=== PATIENT | male | born 1950 | race Caucasian/White ===

== ENCOUNTER 2017-09-24 17:47 | Inpatient (IN) | payer MEDICARE, OTHER ==
[~2017-09-24] VITALS: Ht 182.9 cm; Wt 96.4 kg
--- NOTE | 2017-09-24 17:52 | ED.ADGEN ---
Past History Past Medical History: Anxiety, CVA, Dementia, Depression, Other Adult General Chief Complaint Chief Complaint ".. I guess I here because I am a beater..." HPI HPI Patient is a 66 year old male who presents with above hx and complaints of confusing, non-compliance with meds, hx of past psychosis, felt to be in actively psychotic currently, hx of chronic pain, Schizophrenia and HTN hx. Pt. follows with Michelle Ho. Pt. lives in [place] and was transfer from [facility] to admission to [facility] for further eval and tx. Pt. said he has chronic pain.. and has not been getting enough pain meds. Review of Systems Review of Systems Constitutional: Denies fever or chills [] Eyes: Denies change in visual acuity, redness, or eye pain [] HENT: Denies nasal congestion or sore throat [] Respiratory: Denies cough or shortness of breath [] Cardiovascular: No additional information not addressed in HPI [] GI: Denies abdominal pain, nausea, vomiting, bloody stools or diarrhea [] : Denies dysuria or hematuria [] Musculoskeletal: Complaints of chronic, neck, back pain and joint pain [] Integument: Denies rash or skin lesions [] Neurologic: Denies headache, focal weakness or sensory changes [] Endocrine: Denies polyuria or polydipsia [] All other systems were reviewed and found to be within normal limits, except as documented in this note. Family History Family History Not currently available. Current Medications Current Medications Current Medications Medications (Trade) Dose Ordered Sig/Julio Start Time Stop Time Status Last Admin Dose Admin Clonidine HCl (Catapres Tts-2) 1 patch 1X ONCE 09/24/17 20:30 09/24/17 20:31 DC See Nursing for home meds Allergies Allergies Allergies Coded Allergies Type Severity Reaction Last Updated Verified Sulfa (Sulfonamide Antibiotics) Allergy Unknown 09/24/17 Yes Physical Exam Physical Exam Constitutional: , in acute distress, non-toxic appearance. [] HENT: Normocephalic, atraumatic, bilateral external ears normal, oropharynx moist, no oral exudates, nose normal. []Poor dentition. Eyes: PERRLA, EOMI, conjunctiva normal, no discharge. Glasses. Neck: Normal range of motion, no tenderness, supple, no stridor. [] Cardiovascular:Heart rate regular rhythm, no murmur [] Lungs & Thorax: Bilateral breath sounds equal with few scattered wheezes on auscultation [] Abdomen: Bowel sounds normal, soft, no tenderness, no masses, no pulsatile masses. [] Skin: Warm, dry, no erythema, no rash. [] Poor turgor. Back: complaints of generalize lumbar and cervical paraspinal muscle tenderness , no CVA tenderness. [] No step off's or mid line. Extremities: No tenderness, no cyanosis, no clubbing, ROM intact, no edema. [] Neurologic: Alert and oriented X 3, No gross motor or sensory function deficits , wide gait, no gross focal deficits noted. []Pt. is ambulatory. Frequently wanders out of room. DTR +2 patella and brachial. Psychologic: Affect anxious, judgement appears limited, mood depressed. Current Patient Data Vital Signs Vital Signs Date Time Temp Pulse Resp B/P (MAP) Pulse Ox O2 Delivery O2 Flow Rate FiO2 09/24/17 18:00 98.7 75 16 95 Room Air Lab Results Laboratory Tests Test 09/24/17 18:10 09/24/17 18:21 09/24/17 19:39 Troponin I Quantitative < 0.017 ng/mL (0-0.055) White Blood Count 6.9 x10^3/uL (4.0-11.0) Red Blood Count 4.74 x10^6/uL (4.30-5.70) Hemoglobin 15.8 g/dL (13.0-17.5) Hematocrit 45.5 % (39.0-53.0) Mean Corpuscular Volume 96 fL (79-100) Mean Corpuscular Hemoglobin 33 pg (25-35) Mean Corpuscular Hemoglobin Concent 35 g/dL (31-37) Red Cell Distribution Width 14.2 % (11.5-14.5) Platelet Count 213 x10^3/uL (140-400) Neutrophils (%) (Auto) 62 % (31-73) Lymphocytes (%) (Auto) 23 % (24-48) L Monocytes (%) (Auto) 10 % (0-9) H Eosinophils (%) (Auto) 5 % (0-3) H Basophils (%) (Auto) 1 % (0-3) Neutrophils # (Auto) 4.2 x10^3uL (1.8-7.7) Lymphocytes # (Auto) 1.6 x10^3/uL (1.0-4.8) Monocytes # (Auto) 0.7 x10^3/uL (0.0-1.1) Eosinophils # (Auto) 0.3 x10^3/uL (0.0-0.7) Basophils # (Auto) 0.1 x10^3/uL (0.0-0.2) Erythrocyte Sedimentation Rate 9 (0-15) Sodium Level 141 mmol/L (136-145) Potassium Level 4.2 mmol/L (3.5-5.1) Chloride Level 105 mmol/L (98-107) Carbon Dioxide Level 28 mmol/L (21-32) Anion Gap 8 (6-14) Blood Urea Nitrogen 20 mg/dL (8-26) Creatinine 0.9 mg/dL (0.7-1.3) Estimated GFR (Cockcroft-Gault) 83.9 Glucose Level 109 mg/dL (70-99) H Calcium Level 9.5 mg/dL (8.5-10.1) Magnesium Level 2.4 mg/dL (1.8-2.4) Creatine Kinase 104 U/L (39-308) Creatine Kinase MB (Mass) 0.7 ng/mL (0.0-3.6) Creatine Kinase MB Relative Index 0.7 % (0-4) PV-Vqn-[id number]-Type Natriuretic Peptide 101 pg/mL (0-124) Urine Collection Type Unknown Urine Color Misty Urine Clarity Hazy Urine pH 6.5 Urine Specific Jackson >=1.030 Urine Protein 30 mg/dl (NEG-TRACE) Urine Glucose (UA) Neg mg/dL (NEG) Urine Ketones (Stick) 15 mg/dL (NEG) Urine Blood Neg (NEG) Urine Nitrite Neg (NEG) Urine Bilirubin Neg (NEG) Urine Urobilinogen Dipstick 1 mg/dL (0.2 mg/dL) Urine Leukocyte Esterase Neg (NEG) Urine RBC 6-10 /HPF (0-2) Urine WBC 1-4 /HPF (0-4) Urine Squamous Epithelial Cells Few /LPF Urine Bacteria 0 /HPF (0-FEW) Urine Mucus Marked /LPF Urine Opiates Screen Neg (NEG) Urine Methadone Screen Neg (NEG) Urine Barbiturates Neg (NEG) Urine Phencyclidine Screen Neg (NEG) Urine Amphetamine/Methamphetamine Neg (NEG) Urine Benzodiazepines Screen Neg (NEG) Urine Cocaine Screen Neg (NEG) Urine Cannabinoids Screen Pos (NEG) Urine Ethyl Alcohol Neg (NEG) EKG EKG [] Radiology/Procedures Radiology/Procedures Dictation of chest x-ray shows some chronic changes. Essentially normal cardiac silhouette. No free air in the diaphragm. Does have arthritic changes. Cervical- DJD changes. No fx. My interpretation CT of head shows no shift, mass, edema, bleed, or fracture. Does have an area of encephalomalacia... and atrophy and white matter changes. [ ]See formal reading when available. Course & Med Decision Making Course & Med Decision Making Pertinent Labs and Imaging studies reviewed. (See chart for details). Still awaiting urine 2014 results. Admit to [facility]- Dr. Feldman. Consult to Dr. Edwards for medical issues and pending urine. [] Final Impression Final Impression 1. Mental Status Change[] 2. Confusion 3. Hx. Noncompliance 4. Hx Chronic Pain 5. Hx Psychosis 6. Hx. of Non-compliance 7. Hx. HTN 8. Marijuana and Tobacco Use. Problems: Dragon Disclaimer Dragon Disclaimer This electronic medical record was generated, in whole or in part, using a voice recognition dictation system. KAITLYNN PAYNE MD Sep 24, 2017 17:52
--- NOTE | 2017-09-24 18:29 | RAD ---
EXAM: Head and cervical spine CT without contrast. HISTORY: Mental status changes. TECHNIQUE: Computed tomographic images of the head and cervical spine were obtained without contrast. *One or more of the following individualized dose reduction techniques were utilized for this examination: 1. Automated exposure control. 2. Adjustment of the mA and/or kV according to patient size. 3. Use of iterative reconstruction technique. COMPARISON: None. FINDINGS: Head: There is no hemorrhage. There is no mass effect or midline shift. There is no hydrocephalus. There are scattered areas of hypodensity within the cerebral white matter, likely due to chronic small vessel disease. There is mild age-appropriate cerebral volume loss. There is a focus of hypodensity within the anterior right frontal lobe possibly due to chronic infarction or the sequela of remote trauma. There is mild paranasal sinus mucosal thickening. The mastoid air cells are clear. No calvarial lesion is seen. Cervical spine: There is straightening of cervical lordosis. There is minimal anterolisthesis of C6 on C7. There is degenerative endplate remodeling with disc space narrowing and osteophytosis primarily at C3-C4 and C5-C6. There are few endplate Schmorl's nodes. There is no suspicious osseous lesion. There is no fracture. 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 At C2-C3, there is no stenosis. At C3-C4, there is a disc bulge and endplate remodeling. There is no stenosis. At C4-C5, there is no stenosis. At C5-C6, there is a right foraminal to extraforaminal disc osteophyte complex and left posterior paracentral disc osteophyte complex superimposed on a disc bulge and endplate remodeling. There is a right uncovertebral arthropathy. There is mild right foraminal stenosis. At C6-C7, there is no stenosis. IMPRESSION: 1. No acute intracranial finding or evidence of acute cervical spine trauma. 2. Scattered areas of hypodensity within the cerebral white matter, likely due to chronic small vessel disease. 3. Suspected small focus of encephalomalacia within the right frontal lobe. 4. Multilevel degenerative change within the cervical spine, described above. 5. Note is made that MRI is more sensitive for acute infarction. Electronically signed by: Lotus Ambrocio MD (09/24/2017 6:26 PM) [facility]
[2017-09-24] MEDS ORDERED: cloNIDine TTS-2 1 PATCH PATCH TD ONE ×2 (18:30→20:30)
--- NOTE | 2017-09-24 18:32 | EKG ---
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
[2017-09-24 18:47] LABS: BASO # 0.1 x10^3/uL (0.0-0.2); BASO % 1 % (0-3); EOS # 0.3 x10^3/uL (0.0-0.7); EOS % 5 % (0-3); HEMATOCRIT 45.5 % (39.0-53.0); HEMOGLOBIN 15.8 g/dL (13.0-17.5); LYMPH # 1.6 x10^3/uL (1.0-4.8); LYMPH % 23 % (24-48); MEAN CORPUSCULAR HEMOGLOBIN 33 pg (25-35); MEAN CORPUSCULAR HGB CONC 35 g/dL (31-37); MEAN CORPUSCULAR VOLUME 96 fL (79-100); MONO # 0.7 x10^3/uL (0.0-1.1); MONO % 10 % (0-9); NEUT # 4.2 x10^3uL (1.8-7.7); NEUT % 62 % (31-73); PLATELET COUNT 213 x10^3/uL (140-400); RED BLOOD COUNT 4.74 x10^6/uL (4.30-5.70); RED CELL DISTRIBUTION WIDTH 14.2 % (11.5-14.5); WHITE BLOOD COUNT 6.9 x10^3/uL (4.0-11.0)
[2017-09-24 19:09] LABS: CALCIUM 9.5 mg/dL (8.5-10.1); CREATININE 0.9 mg/dL (0.7-1.3); GFR 83.9; MAGNESIUM 2.4 mg/dL (1.8-2.4); POTASSIUM 4.2 mmol/L (3.5-5.1)
[2017-09-24 19:55] LABS: SEDIMENTATION RATE 9 (0-15)
[2017-09-24 20:28] LABS: AMPHETAMINE/METHAMPHETAMINE NEG (NEG); BARBITURATES NEG (NEG); BENZODIAZEPINES NEG (NEG); CANNABINOIDS POS (NEG); COCAINE NEG (NEG); METHADONE NEG (NEG); OPIATES NEG (NEG); PHENCYCLIDINE NEG (NEG)
[2017-09-24 20:30] LABS: BILIRUBIN,URINE NEG (NEG); CLARITY,URINE HAZY; COLOR,URINE AMBER; GLUCOSE,URINE NEG (NEG); UROBILINOGEN,URINE 1 mg/dL (0.2 mg/dL)
[2017-09-24 20:31] LABS: BACTERIA,URINE 0 /HPF (0-FEW); NITRITE,URINE NEG (NEG); SQUAMOUS EPITHELIAL CELL,UR FEW /LPF
[2017-09-24] MEDS ORDERED: RISP1TAB3 PO (21:24)
[2017-09-24] MEDS ORDERED: PROP60TA PO (21:24)
[2017-09-24] MEDS ORDERED: TRAZ-90 PO (21:24)
[2017-09-24] MEDS ORDERED: GABA-587 PO (21:24)
[2017-09-24] MEDS ORDERED: MAGNESIUM HYDROXIDE 2,400 MG/30 ML ORAL.SUSP. PO PRN (21:30)
[2017-09-24] MEDS ORDERED: METHYL SALICYLATE/MENTHOL TOPICAL OINTMENT 29GM TUBE. TP PRN (21:30)
[2017-09-24] MEDS ORDERED: MAG HYDROX/AL HYDROX/SIMETH 30 ML ORAL.SUSP PO PRN (21:30)
[2017-09-24] MEDS: traZODone 100 MG TABLET. PO SCH (22:40)
[2017-09-24] MEDS: GABAPENTIN 400 MG CAPSULE. PO SCH (22:40)
[2017-09-24] MEDS: risperiDONE 1 MG TABLET. PO SCH (22:41)
[2017-09-24] MEDS: ACETAMINOPHEN 325 MG TABLET PO PRN (23:40)
[2017-09-24] MEDS: PROPRANOLOL 20 MG TABLET. PO SCH (23:41)
[2017-09-25 00:57] VITALS: BP 142/77
[2017-09-25 06:46] VITALS: BP 140/74
[2017-09-25] MEDS ORDERED: GABAPENTIN 400 MG CAPSULE. PO SCH (09:00)
[2017-09-25] MEDS ORDERED: PROPRANOLOL 20 MG TABLET. PO SCH (09:00)
[2017-09-25] MEDS ORDERED: risperiDONE 1 MG TABLET. PO SCH (09:00)
[2017-09-25] MEDS ORDERED: PROPRANOLOL HCL 60 MG PO SCH (09:00)
[2017-09-25] MEDS: GABAPENTIN 400 MG CAPSULE. PO SCH ×3 (09:17→21:02)
[2017-09-25] MEDS: risperiDONE 1 MG TABLET. PO SCH ×2 (09:17→21:02)
[2017-09-25] MEDS: ACETAMINOPHEN 325 MG TABLET PO PRN (09:19)
[2017-09-25 09:21] VITALS: BP 124/83
[2017-09-25] MEDS: PROPRANOLOL 20 MG TABLET. PO SCH ×3 (09:24→21:04)
--- NOTE | 2017-09-25 10:26 | RAD ---
CHEST PA LATERAL Clinical Indication: MENTAL STATUS CHANGE Comparison: None. Findings: Normal lung volume. No focal consolidations. Normal pulmonary vasculature. No pleural effusion or pneumothorax. The cardiomediastinal silhouette is normal. Slightly tortuous and atherosclerotic thoracic aorta. No acute osseous abnormality. IMPRESSION: No acute cardiopulmonary process.
--- NOTE | 2017-09-25 16:11 | PDOC1 ---
History of Present Illness Reason for Visit: Confused History of Present Illness Pt sent to [facility] for evaluation in the [facility] unit. Per report, pt has been confused lately, having excessive psychoses. He walked to a pharmacy and then [facility]. Called 911 for leg pain. He has been having sx's for about 10 days. He normally is seen as an outpatient 3 times per week. Pt is a relatively poor historian, but is alert. Per nursing staff, pt has been saying he hadn't been able to walk for 2 days, but today has been "walking much better. " Chief Complaint: PSYCH EVALUATION Allergies: Coded Allergies: Sulfa (Sulfonamide Antibiotics) (Verified Allergy, Unknown, 09/24/17) Past Medical History Cardiac: HTN Psych: Schizophrenia Past Surgical History: No pertinent history Family History: No pertinent hx Past Social History Smoke: Quit Alcohol: none Drugs: None Lives: Alone Review of Systems Review Of Systems Fourteen system , review of systems has been reviewed. See HPI for pertinent positives and negative responses, other [place] all other systems are negative, non pertinent or non contributory Allergies: Coded Allergies: Sulfa (Sulfonamide Antibiotics) (Verified Allergy, Unknown, 09/24/17) Medications Current Medications Clonidine HCl (Catapres Tts-2) 1 patch 1X ONCE TD Last administered on at 19:10; Start 09/24/17 at 18:30; Stop 09/24/17 at 18:31; Status DC Clonidine HCl (Catapres Tts-2) 1 patch 1X ONCE TD ; Start 09/24/17 at 20:30; Stop 09/24/17 at 20:31; Status DC Acetaminophen (Tylenol) 650 mg PRN Q6HRS PRN PO MILDPAIN / TEMP Last administered on 09/25/17at 09:19; Start 09/24/17 at 21:30 Multi-Ingredient Ointment (Analgesic Amistad) 1 tip PRN QID PRN TP MUSCLE PAIN; Start 09/24/17 at 21:30 Al Hydroxide/Mg Hydroxide (Mylanta Plus Xs) 15 ml PRN AFTMEALHC PRN PO DYSPEPSIA; Start 09/24/17 at 21:30 Magnesium Hydroxide (Milk Of Magnesia) 2,400 mg PRN QHS PRN PO CONSTIPATION 1ST CHOICE; Start 09/24/17 at 21:30 Gabapentin (Neurontin) 400 mg TID PO ; Start 09/25/17 at 09:00; Stop 09/25/17 at 09:00; Status DC Risperidone (RisperDAL) 1 mg BID PO ; Start 09/25/17 at 09:00; Stop 09/25/17 at 09:00; Status DC Trazodone HCl (Desyrel) 200 mg QHS PO ; Start 09/25/17 at 21:00; Stop 09/25/17 at 21:00; Status DC Non-Formulary Medication (Propranolol Hcl ) 60 mg TID PO ; Start 09/25/17 at 09: 00; Stop 09/25/17 at 09:00; Status DC Gabapentin (Neurontin) 400 mg TID PO Last administered on 09/25/17at 09:17; Start 09/24/17 at 23:00 Risperidone (RisperDAL) 1 mg BID PO Last administered on 09/25/17at 09:17; Start 09/24/17 at 23:00 Trazodone HCl (Desyrel) 200 mg QHS PO Last administered on 09/24/17at 22:40; Start 09/24/17 at 23:00 Propranolol HCl (Inderal) 60 mg TID PO ; Start 09/25/17 at 09:00; Stop 09/25/17 at 09:00; Status DC Propranolol HCl (Inderal) 60 mg TID PO Last administered on 09/25/17at 09:24; Start 09/24/17 at 23:45 Divalproex Sodium (Depakote Er) 500 mg QHS PO ; Start 09/25/17 at 21:00 Active Scripts Active Reported Trazodone Hcl 100 Mg Tablet 200 Mg PO QHS Risperidone 1 Mg Tablet 1 Mg PO BID Propranolol Hcl 60 Mg Tablet 60 Mg PO TID Neurontin (Gabapentin) 400 Mg Capsule 400 Mg PO TID Exam Vital Signs Vital Signs Date Time Temp Pulse Resp B/P (MAP) Pulse Ox O2 Delivery O2 Flow Rate FiO2 09/25/17 09:24 75 124/83 09/25/17 06:46 97.6 20 94 09/24/17 20:36 Room Air General Appearance: Alert, Oriented X3, Cooperative, No acute distress HEENT: Atraumatic, PERRLA, EOMI, Mucous membr. moist/pink, Other (Neck supple, no JVD, no LAD, No carotid bruits) Respiratory: Clear to auscultation, Normal air movement Heart: Regular rate, Normal S1, Normal S2, No murmurs Abdominal: Soft, No tenderness, No hepatospenomegaly, No masses Extremities: No edema, Normal pulses, No tenderness/swelling Skin: No rashes, No breakdown Neuro: Normal gait, Normal speech, Strength at 5/5 X4 ext, Normal tone, Sensation intact, Cranial nerves 3-12 NL, Reflexes 2+ Psych/Mental Status: Mental status NL, Mood NL Assessment/Plan Assessment/Plan 1. Schizophrenia w/ acute psychosis: Per Dr. Feldman. 2. Encephalomalacia: Unclear etiology. Not acute. Consider MRI if pt has any new or worsening sx's. 3. HTN: Monitor BP, ok now. Adjust meds as necessary. 4. DVT proph: No heparin, pt fully ambulatory. COURSE Allergies Coded Allergies Type Severity Reaction Last Updated Verified Sulfa (Sulfonamide Antibiotics) Allergy Unknown 09/24/17 Yes Laboratory Tests Test 09/24/17 18:10 09/24/17 18:21 09/24/17 19:00 09/24/17 19:39 Troponin I Quantitative < 0.017 ng/mL (0-0.055) White Blood Count 6.9 x10^3/uL (4.0-11.0) Red Blood Count 4.74 x10^6/uL (4.30-5.70) Hemoglobin 15.8 g/dL (13.0-17.5) Hematocrit 45.5 % (39.0-53.0) Mean Corpuscular Volume 96 fL (79-100) Mean Corpuscular Hemoglobin 33 pg (25-35) Mean Corpuscular Hemoglobin Concent 35 g/dL (31-37) Red Cell Distribution Width 14.2 % (11.5-14.5) Platelet Count 213 x10^3/uL (140-400) Neutrophils (%) (Auto) 62 % (31-73) Lymphocytes (%) (Auto) 23 % (24-48) Monocytes (%) (Auto) 10 % (0-9) Eosinophils (%) (Auto) 5 % (0-3) Basophils (%) (Auto) 1 % (0-3) Neutrophils # (Auto) 4.2 x10^3uL (1.8-7.7) Lymphocytes # (Auto) 1.6 x10^3/uL (1.0-4.8) Monocytes # (Auto) 0.7 x10^3/uL (0.0-1.1) Eosinophils # (Auto) 0.3 x10^3/uL (0.0-0.7) Basophils # (Auto) 0.1 x10^3/uL (0.0-0.2) Erythrocyte Sedimentation Rate 9 (0-15) Sodium Level 141 mmol/L (136-145) Potassium Level 4.2 mmol/L (3.5-5.1) Chloride Level 105 mmol/L (98-107) Carbon Dioxide Level 28 mmol/L (21-32) Anion Gap 8 (6-14) Blood Urea Nitrogen 20 mg/dL (8-26) Creatinine 0.9 mg/dL (0.7-1.3) Estimated GFR (Cockcroft-Gault) 83.9 Glucose Level 109 mg/dL (70-99) Calcium Level 9.5 mg/dL (8.5-10.1) Magnesium Level 2.4 mg/dL (1.8-2.4) Creatine Kinase 104 U/L (39-308) Creatine Kinase MB (Mass) 0.7 ng/mL (0.0-3.6) Creatine Kinase MB Relative Index 0.7 % (0-4) GX-Qio-T-Type Natriuretic Peptide 101 pg/mL (0-124) Thyroid Stimulating Hormone (TSH) 0.630 uIU/mL (0.358-3.740) Iron Level 121 ug/dL (65-175) Total Iron Binding Capacity 296 ug/dL (250-450) Iron Saturation 41 % (15-34) Triglycerides Level 209 mg/dL (0-150) Cholesterol Level 181 mg/dL (0-200) LDL Cholesterol, Calculated 104 mg/dL (0-100) VLDL Cholesterol, Calculated 41 mg/dL (0-40) Non-HDL Cholesterol Calculated 145 mg/dL (0-129) HDL Cholesterol 36 mg/dL (40-60) Cholesterol/HDL Ratio 5.0 Thyroxine (T4) 10.0 ug/dL (4.5-12.0) Total Triiodothyronine 134 ng/dL (71-180) Urine Collection Type Unknown Urine Color Misty Urine Clarity Hazy Urine pH 6.5 Urine Specific Media >=1.030 Urine Protein 30 mg/dl (NEG-TRACE) Urine Glucose (UA) Neg mg/dL (NEG) Urine Ketones (Stick) 15 mg/dL (NEG) Urine Blood Neg (NEG) Urine Nitrite Neg (NEG) Urine Bilirubin Neg (NEG) Urine Urobilinogen Dipstick 1 mg/dL (0.2 mg/dL) Urine Leukocyte Esterase Neg (NEG) Urine RBC 6-10 /HPF (0-2) Urine WBC 1-4 /HPF (0-4) Urine Squamous Epithelial Cells Few /LPF Urine Bacteria 0 /HPF (0-FEW) Urine Mucus Marked /LPF Urine Opiates Screen Neg (NEG) Urine Methadone Screen Neg (NEG) Urine Barbiturates Neg (NEG) Urine Phencyclidine Screen Neg (NEG) Urine Amphetamine/Methamphetamine Neg (NEG) Urine Benzodiazepines Screen Neg (NEG) Urine Cocaine Screen Neg (NEG) Urine Cannabinoids Screen Pos (NEG) Urine Ethyl Alcohol Neg (NEG) Test 09/25/17 09:55 Prothrombin Time 10.5 SEC (9.4-11.4) Prothromb Time International Ratio 1.0 (0.9-1.1) Activated Partial Thromboplast Time 23 SEC (23-33) Current Medications Medications (Trade) Dose Ordered Sig/Julio Route PRN Reason Start Time Stop Time Status Last Admin Dose Admin Clonidine HCl (Catapres Tts-2) 1 patch 1X ONCE TD 09/24/17 18:30 09/24/17 18:31 DC 09/24/17 19:10 Clonidine HCl (Catapres Tts-2) 1 patch 1X ONCE TD 09/24/17 20:30 09/24/17 20:31 DC Acetaminophen (Tylenol) 650 mg PRN Q6HRS PRN PO MILDPAIN / TEMP 09/24/17 21:30 09/25/17 09:19 Multi-Ingredient Ointment (Analgesic Amistad) 1 tip PRN QID PRN TP MUSCLE PAIN 09/24/17 21:30 Al Hydroxide/Mg Hydroxide (Mylanta Plus Xs) 15 ml PRN AFTMEALHC PRN PO DYSPEPSIA 09/24/17 21:30 Magnesium Hydroxide (Milk Of Magnesia) 2,400 mg PRN QHS PRN PO CONSTIPATION 1ST CHOICE 09/24/17 21:30 Gabapentin (Neurontin) 400 mg TID PO 09/25/17 09:00 09/25/17 09:00 DC Risperidone (RisperDAL) 1 mg BID PO 09/25/17 09:00 09/25/17 09:00 DC Trazodone HCl (Desyrel) 200 mg QHS PO 09/25/17 21:00 09/25/17 21:00 DC Non-Formulary Medication (Propranolol Hcl ) 60 mg TID PO 09/25/17 09:00 09/25/17 09:00 DC Gabapentin (Neurontin) 400 mg TID PO 09/24/17 23:00 09/25/17 09:17 Risperidone (RisperDAL) 1 mg BID PO 09/24/17 23:00 09/25/17 09:17 Trazodone HCl (Desyrel) 200 mg QHS PO 09/24/17 23:00 09/24/17 22:40 Propranolol HCl (Inderal) 60 mg TID PO 09/25/17 09:00 09/25/17 09:00 DC Propranolol HCl (Inderal) 60 mg TID PO 09/24/17 23:45 09/25/17 09:24 Divalproex Sodium (Depakote Er) 500 mg QHS PO 09/25/17 21:00 Vital Signs Date Time Temp Pulse Resp B/P (MAP) Pulse Ox O2 Delivery O2 Flow Rate FiO2 09/25/17 09:24 75 124/83 09/25/17 06:46 97.6 20 94 09/24/17 20:36 Room Air EXAM: Head and cervical spine CT without contrast. HISTORY: Mental status changes. TECHNIQUE: Computed tomographic images of the head and cervical spine were obtained without contrast. *One or more of the following individualized dose reduction techniques were utilized for this examination: 1. Automated exposure control. 2. Adjustment of the mA and/or kV according to patient size. 3. Use of iterative reconstruction technique. COMPARISON: None. FINDINGS: Head: There is no hemorrhage. There is no mass effect or midline shift. There is no hydrocephalus. There are scattered areas of hypodensity within the cerebral white matter, likely due to chronic small vessel disease. There is mild age-appropriate cerebral volume loss. There is a focus of hypodensity within the anterior right frontal lobe possibly due to chronic infarction or the sequela of remote trauma. There is mild paranasal sinus mucosal thickening. The mastoid air cells are clear. No calvarial lesion is seen. Cervical spine: There is straightening of cervical lordosis. There is minimal anterolisthesis of C6 on C7. There is degenerative endplate remodeling with disc space narrowing and osteophytosis primarily at C3-C4 and C5-C6. There are few endplate Schmorl's nodes. There is no suspicious osseous lesion. There is no fracture. 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 At C2-C3, there is no stenosis. At C3-C4, there is a disc bulge and endplate remodeling. There is no stenosis. At C4-C5, there is no stenosis. At C5-C6, there is a right foraminal to extraforaminal disc osteophyte complex and left posterior paracentral disc osteophyte complex superimposed on a disc bulge and endplate remodeling. There is a right uncovertebral arthropathy. There is mild right foraminal stenosis. At C6-C7, there is no stenosis. IMPRESSION: 1. No acute intracranial finding or evidence of acute cervical spine trauma. 2. Scattered areas of hypodensity within the cerebral white matter, likely due to chronic small vessel disease. 3. Suspected small focus of encephalomalacia within the right frontal lobe. 4. Multilevel degenerative change within the cervical spine, described above. 5. Note is made that MRI is more sensitive for acute infarction. CHEST PA LATERAL Clinical Indication: MENTAL STATUS CHANGE Comparison: None. Findings: Normal lung volume. No focal consolidations. Normal pulmonary vasculature. No pleural effusion or pneumothorax. The cardiomediastinal silhouette is normal. Slightly tortuous and atherosclerotic thoracic aorta. No acute osseous abnormality. IMPRESSION: No acute cardiopulmonary process. GAURANG COLEMAN MD Sep 25, 2017 16:10
[2017-09-25 17:47] VITALS: BP 136/86
[2017-09-25] MEDS ORDERED: traZODone 100 MG TABLET. PO SCH (21:00)
[2017-09-25] MEDS: traZODone 100 MG TABLET. PO SCH (21:02)
[2017-09-25] MEDS: DIVALPROEX ER 500 MG TAB.ER.24H PO SCH (21:05)
--- NOTE | 2017-09-25 22:42 | PDOC ---
Exam Note: Sander Note: Please also refer to the separate dictated note~for this date of service dictated separately.~Patient seen individually. Discussed the patient with Nursing staff reviewed the chart.~Reviewed interim history and current functioning. Reviewed vital signs,~Labs/ Radiology~and current medications noted below. Continue current treatment with the changes noted in the dictated addendum note Assessment: Vital Signs: Vital Signs Date Time Temp Pulse Resp B/P (MAP) Pulse Ox O2 Delivery O2 Flow Rate FiO2 09/25/17 21:04 73 136/86 09/25/17 17:47 97.8 20 94 09/24/17 20:36 Room Air I&O Intake and Output 09/25/17 07:00 Intake Total 520 ml Balance 520 ml Intake Oral 520 ml Labs: Laboratory Tests Test 09/25/17 09:55 Prothrombin Time 10.5 SEC (9.4-11.4) Prothrombin Time INR 1.0 (0.9-1.1) PTT 23 SEC (23-33) Current Medications: Meds: Current Medications Clonidine HCl (Catapres Tts-2) 1 patch 1X ONCE TD Last administered on at 19:10; Start 09/24/17 at 18:30; Stop 09/24/17 at 18:31; Status DC Clonidine HCl (Catapres Tts-2) 1 patch 1X ONCE TD ; Start 09/24/17 at 20:30; Stop 09/24/17 at 20:31; Status DC Acetaminophen (Tylenol) 650 mg PRN Q6HRS PRN PO MILDPAIN / TEMP Last administered on 09/25/17at 09:19; Start 09/24/17 at 21:30 Multi-Ingredient Ointment (Analgesic Emblem) 1 tip PRN QID PRN TP MUSCLE PAIN; Start 09/24/17 at 21:30 Al Hydroxide/Mg Hydroxide (Mylanta Plus Xs) 15 ml PRN AFTMEALHC PRN PO DYSPEPSIA; Start 09/24/17 at 21:30 Magnesium Hydroxide (Milk Of Magnesia) 2,400 mg PRN QHS PRN PO CONSTIPATION 1ST CHOICE; Start 09/24/17 at 21:30 Gabapentin (Neurontin) 400 mg TID PO ; Start 09/25/17 at 09:00; Stop 09/25/17 at 09:00; Status DC Risperidone (RisperDAL) 1 mg BID PO ; Start 09/25/17 at 09:00; Stop 09/25/17 at 09:00; Status DC Trazodone HCl (Desyrel) 200 mg QHS PO ; Start 09/25/17 at 21:00; Stop 09/25/17 at 21:00; Status DC Non-Formulary Medication (Propranolol Hcl ) 60 mg TID PO ; Start 09/25/17 at 09: 00; Stop 09/25/17 at 09:00; Status DC Gabapentin (Neurontin) 400 mg TID PO Last administered on 09/25/17at 21:02; Start 09/24/17 at 23:00 Risperidone (RisperDAL) 1 mg BID PO Last administered on 09/25/17at 21:02; Start 09/24/17 at 23:00 Trazodone HCl (Desyrel) 200 mg QHS PO Last administered on 09/25/17at 21:02; Start 09/24/17 at 23:00 Propranolol HCl (Inderal) 60 mg TID PO ; Start 09/25/17 at 09:00; Stop 09/25/17 at 09:00; Status DC Propranolol HCl (Inderal) 60 mg TID PO Last administered on 09/25/17at 21:04; Start 09/24/17 at 23:45 Divalproex Sodium (Depakote Er) 500 mg QHS PO Last administered on 09/25/17at 21 :05; Start 09/25/17 at 21:00 Active Scripts Active Reported Trazodone Hcl 100 Mg Tablet 200 Mg PO QHS Risperidone 1 Mg Tablet 1 Mg PO BID Propranolol Hcl 60 Mg Tablet 60 Mg PO TID Neurontin (Gabapentin) 400 Mg Capsule 400 Mg PO TID I have reviewed the current psychotropics carefully including drug interactions. Risk benefit ratio favors no change other than as noted in my dictated progress note. Diagnosis: Problems: (1) Schizoaffective disorder, chronic condition with acute exacerbation ZORAIDA MCKEON MD Sep 25, 2017 22:42
[2017-09-26 06:33] VITALS: BP 116/61
[2017-09-26] MEDS: GABAPENTIN 400 MG CAPSULE. PO SCH ×3 (08:47→20:06)
[2017-09-26] MEDS: risperiDONE 1 MG TABLET. PO SCH ×2 (08:47→20:06)
[2017-09-26] MEDS: PROPRANOLOL 20 MG TABLET. PO SCH ×3 (09:00→21:00)
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
[2017-09-26 13:01] VITALS: BP 109/84
[2017-09-26 16:20] VITALS: BP 130/80
[2017-09-26] MEDS: DIVALPROEX ER 500 MG TAB.ER.24H PO SCH (20:06)
[2017-09-26] MEDS: traZODone 100 MG TABLET. PO SCH (20:06)
--- NOTE | 2017-09-26 22:27 | PDOC ---
Exam Note: Sander Note: Please also refer to the separate dictated note~for this date of service dictated separately.~Patient seen individually. Discussed the patient with Nursing staff reviewed the chart.~Reviewed interim history and current functioning. Reviewed vital signs,~Labs/ Radiology~and current medications noted below. Continue current treatment with the changes noted in the dictated addendum note Assessment: Vital Signs: Vital Signs Date Time Temp Pulse Resp B/P (MAP) Pulse Ox O2 Delivery O2 Flow Rate FiO2 09/26/17 16:20 98.4 86 18 130/80 (97) 97 09/24/17 20:36 Room Air I&O Intake and Output 09/26/17 07:00 Intake Total 1140 ml Balance 1140 ml Intake Oral 1140 ml Current Medications: Meds: Current Medications Clonidine HCl (Catapres Tts-2) 1 patch 1X ONCE TD Last administered on at 19:10; Start 09/24/17 at 18:30; Stop 09/24/17 at 18:31; Status DC Clonidine HCl (Catapres Tts-2) 1 patch 1X ONCE TD ; Start 09/24/17 at 20:30; Stop 09/24/17 at 20:31; Status DC Acetaminophen (Tylenol) 650 mg PRN Q6HRS PRN PO MILDPAIN / TEMP Last administered on 09/25/17at 09:19; Start 09/24/17 at 21:30 Multi-Ingredient Ointment (Analgesic Pony) 1 tip PRN QID PRN TP MUSCLE PAIN; Start 09/24/17 at 21:30 Al Hydroxide/Mg Hydroxide (Mylanta Plus Xs) 15 ml PRN AFTMEALHC PRN PO DYSPEPSIA; Start 09/24/17 at 21:30 Magnesium Hydroxide (Milk Of Magnesia) 2,400 mg PRN QHS PRN PO CONSTIPATION 1ST CHOICE; Start 09/24/17 at 21:30 Gabapentin (Neurontin) 400 mg TID PO ; Start 09/25/17 at 09:00; Stop 09/25/17 at 09:00; Status DC Risperidone (RisperDAL) 1 mg BID PO ; Start 09/25/17 at 09:00; Stop 09/25/17 at 09:00; Status DC Trazodone HCl (Desyrel) 200 mg QHS PO ; Start 09/25/17 at 21:00; Stop 09/25/17 at 21:00; Status DC Non-Formulary Medication (Propranolol Hcl ) 60 mg TID PO ; Start 09/25/17 at 09: 00; Stop 09/25/17 at 09:00; Status DC Gabapentin (Neurontin) 400 mg TID PO Last administered on 09/26/17at 20:06; Start 09/24/17 at 23:00 Risperidone (RisperDAL) 1 mg BID PO Last administered on 09/26/17at 20:06; Start 09/24/17 at 23:00 Trazodone HCl (Desyrel) 200 mg QHS PO Last administered on 09/26/17at 20:06; Start 09/24/17 at 23:00 Propranolol HCl (Inderal) 60 mg TID PO ; Start 09/25/17 at 09:00; Stop 09/25/17 at 09:00; Status DC Propranolol HCl (Inderal) 60 mg TID PO Last administered on 09/25/17at 21:04; Start 09/24/17 at 23:45; Stop 09/26/17 at 15:04; Status DC Divalproex Sodium (Depakote Er) 500 mg QHS PO Last administered on 09/26/17at 20 :06; Start 09/25/17 at 21:00 Propranolol HCl (Inderal) 40 mg TID PO ; Start 09/26/17 at 21:00 Active Scripts Active Reported Trazodone Hcl 100 Mg Tablet 200 Mg PO QHS Risperidone 1 Mg Tablet 1 Mg PO BID Propranolol Hcl 60 Mg Tablet 60 Mg PO TID Neurontin (Gabapentin) 400 Mg Capsule 400 Mg PO TID I have reviewed the current psychotropics carefully including drug interactions. Risk benefit ratio favors no change other than as noted in my dictated progress note. Diagnosis: Problems: (1) Schizoaffective disorder, chronic condition with acute exacerbation ZORAIDA MCKEON MD Sep 26, 2017 22:27
[2017-09-27 06:21] VITALS: BP 113/75
[2017-09-27] MEDS: GABAPENTIN 400 MG CAPSULE. PO SCH ×3 (08:44→20:05)
[2017-09-27] MEDS: risperiDONE 1 MG TABLET. PO SCH ×2 (08:44→20:05)
[2017-09-27] MEDS: PROPRANOLOL 20 MG TABLET. PO SCH ×3 (09:00→20:09)
[2017-09-27 14:38] VITALS: BP 100/65
[2017-09-27 16:21] VITALS: BP 100/65
[2017-09-27] MEDS: traZODone 100 MG TABLET. PO SCH (20:06)
[2017-09-27] MEDS ORDERED: DIVALPROEX 125 MG CAP.SPRINK PO SCH (21:00)
--- NOTE | 2017-09-27 21:40 | PDOC ---
Exam Note: Sander Note: Please also refer to the separate dictated note~for this date of service dictated separately.~Patient seen individually. Discussed the patient with Nursing staff reviewed the chart.~Reviewed interim history and current functioning. Reviewed vital signs,~Labs/ Radiology~and current medications noted below. Continue current treatment with the changes noted in the dictated addendum note Assessment: Vital Signs: Vital Signs Date Time Temp Pulse Resp B/P (MAP) Pulse Ox O2 Delivery O2 Flow Rate FiO2 09/27/17 20:09 98 100/65 09/27/17 16:21 98.8 20 96 09/24/17 20:36 Room Air I&O Intake and Output 09/27/17 07:00 Intake Total 1020 ml Output Total 1 ml Balance 1019 ml Intake Oral 1020 ml Output Urine Total 1 ml Current Medications: Meds: Current Medications Clonidine HCl (Catapres Tts-2) 1 patch 1X ONCE TD Last administered on at 19:10; Start 09/24/17 at 18:30; Stop 09/24/17 at 18:31; Status DC Clonidine HCl (Catapres Tts-2) 1 patch 1X ONCE TD ; Start 09/24/17 at 20:30; Stop 09/24/17 at 20:31; Status DC Acetaminophen (Tylenol) 650 mg PRN Q6HRS PRN PO MILDPAIN / TEMP Last administered on 09/25/17at 09:19; Start 09/24/17 at 21:30 Multi-Ingredient Ointment (Analgesic [place]uride) 1 tip PRN QID PRN TP MUSCLE PAIN; Start 09/24/17 at 21:30 Al Hydroxide/Mg Hydroxide (Mylanta Plus Xs) 15 ml PRN AFTMEALHC PRN PO DYSPEPSIA; Start 09/24/17 at 21:30 Magnesium Hydroxide (Milk Of Magnesia) 2,400 mg PRN QHS PRN PO CONSTIPATION 1ST CHOICE; Start 09/24/17 at 21:30 Gabapentin (Neurontin) 400 mg TID PO ; Start 09/25/17 at 09:00; Stop 09/25/17 at 09:00; Status DC Risperidone (RisperDAL) 1 mg BID PO ; Start 09/25/17 at 09:00; Stop 09/25/17 at 09:00; Status DC Trazodone HCl (Desyrel) 200 mg QHS PO ; Start 09/25/17 at 21:00; Stop 09/25/17 at 21:00; Status DC Non-Formulary Medication (Propranolol Hcl ) 60 mg TID PO ; Start 09/25/17 at 09: 00; Stop 09/25/17 at 09:00; Status DC Gabapentin (Neurontin) 400 mg TID PO Last administered on 09/27/17at 20:05; Start 09/24/17 at 23:00 Risperidone (RisperDAL) 1 mg BID PO Last administered on 09/27/17at 20:05; Start 09/24/17 at 23:00 Trazodone HCl (Desyrel) 200 mg QHS PO Last administered on 09/27/17at 20:06; Start 09/24/17 at 23:00 Propranolol HCl (Inderal) 60 mg TID PO ; Start 09/25/17 at 09:00; Stop 09/25/17 at 09:00; Status DC Propranolol HCl (Inderal) 60 mg TID PO Last administered on 09/25/17at 21:04; Start 09/24/17 at 23:45; Stop 09/26/17 at 15:04; Status DC Divalproex Sodium (Depakote Er) 500 mg QHS PO Last administered on 09/26/17at 20 :06; Start 09/25/17 at 21:00; Stop 09/27/17 at 18:26; Status DC Propranolol HCl (Inderal) 40 mg TID PO Last administered on 09/27/17 20:09; Start 09/26/17 at 21:00 Divalproex Sodium (Depakote Sprinkles) 500 mg HS PO Last administered on at 20:09; Start 09/27/17 at 21:00 Active Scripts Active Reported Trazodone Hcl 100 Mg Tablet 200 Mg PO QHS Risperidone 1 Mg Tablet 1 Mg PO BID Propranolol Hcl 60 Mg Tablet 60 Mg PO TID Neurontin (Gabapentin) 400 Mg Capsule 400 Mg PO TID I have reviewed the current psychotropics carefully including drug interactions. Risk benefit ratio favors no change other than as noted in my dictated progress note. Diagnosis: Problems: (1) Bipolar 1 disorder, manic, moderate (2) Anxiety disorder (3) Bipolar affective, mixed, severe (4) Confusion (5) Schizoaffective disorder, chronic condition with acute exacerbation ZORAIDA MCKEON MD Sep 27, 2017 21:40
[2017-09-28] MEDS: ACETAMINOPHEN 325 MG TABLET PO PRN (04:12)
[2017-09-28 06:38] VITALS: BP 104/66
[2017-09-28 08:11] LABS: BASO # 0.1 x10^3/uL (0.0-0.2); BASO % 1 % (0-3); EOS # 0.3 x10^3/uL (0.0-0.7); EOS % 7 % (0-3); HEMATOCRIT 40.2 % (39.0-53.0); HEMOGLOBIN 13.9 g/dL (13.0-17.5); LYMPH # 1.1 x10^3/uL (1.0-4.8); LYMPH % 23 % (24-48); MEAN CORPUSCULAR HEMOGLOBIN 33 pg (25-35); MEAN CORPUSCULAR HGB CONC 35 g/dL (31-37); MEAN CORPUSCULAR VOLUME 96 fL (79-100); MONO # 0.4 x10^3/uL (0.0-1.1); MONO % 9 % (0-9); NEUT % 61 % (31-73); PLATELET COUNT 157 x10^3/uL (140-400); RED BLOOD COUNT 4.19 x10^6/uL (4.30-5.70); RED CELL DISTRIBUTION WIDTH 13.6 % (11.5-14.5); WHITE BLOOD COUNT 4.9 x10^3/uL (4.0-11.0)
[2017-09-28 08:32] LABS: ALBUMIN 3.4 g/dL (3.4-5.0); ALBUMIN/GLOBULIN RATIO 1.1 (1.0-1.7); ALK PHOS 51 U/L (46-116); ALT (SGPT) 18 U/L (16-63); ANION GAP 7 (6-14); AST (SGOT) 12 U/L (15-37); BLOOD UREA NITROGEN 19 mg/dL (8-26); BUN/CREATININE RATIO 21 (6-20); CALCIUM 8.6 mg/dL (8.5-10.1); CARBON DIOXIDE 27 mmol/L (21-32); CHLORIDE 105 mmol/L (98-107); CREATININE 0.9 mg/dL (0.7-1.3); GFR 83.9; GLUCOSE 95 mg/dL (70-99); SODIUM 139 mmol/L (136-145); TOTAL BILIRUBIN 0.5 mg/dL (0.2-1.0); TOTAL PROTEIN 6.5 g/dL (6.4-8.2)
[2017-09-28] MEDS: risperiDONE 1 MG TABLET. PO SCH ×2 (08:37→20:13)
[2017-09-28] MEDS: GABAPENTIN 400 MG CAPSULE. PO SCH ×3 (08:37→20:13)
[2017-09-28] MEDS: PROPRANOLOL 20 MG TABLET. PO SCH ×3 (08:38→20:13)
[2017-09-28 08:44] LABS: VAL ACID 30 mcg/mL (50-100)
--- NOTE | 2017-09-28 08:54 | PN ---
DATE: 09/25/2017 This is a late entry of 09/25/2017, covers elements not covered in my initial note of 09/25/2017. SUBJECTIVE: I met with the patient in the evening. The patient slept 5 hours previous night. MAN Marcie MCKEON MD DR: QUYEN/chapis JOB#: [id number] / [id number]
--- NOTE | 2017-09-28 08:55 | PN ---
DATE: 09/26/2017 This late entry 09/26/2017 covers elements not covered in my initial note 09/26/2017. SUBJECTIVE: I met with the patient in the evening of 09/26/2017 in his room. He slept 9 hours previous evening, somewhat withdrawn, talking about spaceships all around him and lying down and missing the ship for his travels. He makes gestures with his arms as if he is flying, quite psychotic. REVIEW OF SYSTEMS: No CV, , pulmonary, eye, ENT system symptoms on review. MENTAL STATUS EXAM: Oriented to himself and situation. Speech has a typical shanice and rhythm. Abstraction fair, computation impaired, language function intact, attention span short. Mood and affect remains labile. He is still quite psychotic. LABORATORY DATA: Reviewed. IMPRESSION: Schizoaffective disorder, bipolar type. PLAN: Continue current psychotropics. Check valproic acid level 09/28/2017. Adjust Depakote thereafter. MAN Marcie MCKEON MD DR: QUYEN/chapis JOB#: [id number] / [id number]
[2017-09-28 13:04] VITALS: BP 118/72
[2017-09-28 16:02] VITALS: BP 112/59
[2017-09-28] MEDS: DIVALPROEX 125 MG CAP.SPRINK PO SCH (20:12)
[2017-09-28] MEDS: MELATONIN 3 MG TABLET PO SCH (20:13)
[2017-09-28] MEDS: MIRTAZAPINE 7.5 MG TABLET. PO SCH (20:13)
[2017-09-28] MEDS: traZODone 100 MG TABLET. PO SCH (20:13)
--- NOTE | 2017-09-28 21:40 | PDOC ---
Exam Note: Sander Note: Please also refer to the separate dictated note~for this date of service dictated separately.~Patient seen individually. Discussed the patient with Nursing staff reviewed the chart.~Reviewed interim history and current functioning. Reviewed vital signs,~Labs/ Radiology~and current medications noted below. Continue current treatment with the changes noted in the dictated addendum note Assessment: Vital Signs: Vital Signs Date Time Temp Pulse Resp B/P (MAP) Pulse Ox O2 Delivery O2 Flow Rate FiO2 09/28/17 20:13 74 112/59 09/28/17 16:02 97.4 18 98 09/24/17 20:36 Room Air I&O Intake and Output 09/28/17 07:00 Intake Total 840 ml Balance 840 ml Intake Oral 840 ml # Voids 1 Labs: Laboratory Tests Test 09/28/17 07:23 White Blood Count 4.9 x10^3/uL (4.0-11.0) Red Blood Count 4.19 x10^6/uL (4.30-5.70) L Hemoglobin 13.9 g/dL (13.0-17.5) Hematocrit 40.2 % (39.0-53.0) Mean Corpuscular Volume 96 fL (79-100) Mean Corpuscular Hemoglobin 33 pg (25-35) Mean Corpuscular Hemoglobin Concent 35 g/dL (31-37) Red Cell Distribution Width 13.6 % (11.5-14.5) Platelet Count 157 x10^3/uL (140-400) Neutrophils (%) (Auto) 61 % (31-73) Lymphocytes (%) (Auto) 23 % (24-48) L Monocytes (%) (Auto) 9 % (0-9) Eosinophils (%) (Auto) 7 % (0-3) H Basophils (%) (Auto) 1 % (0-3) Neutrophils # (Auto) 3.0 x10^3uL (1.8-7.7) Lymphocytes # (Auto) 1.1 x10^3/uL (1.0-4.8) Monocytes # (Auto) 0.4 x10^3/uL (0.0-1.1) Eosinophils # (Auto) 0.3 x10^3/uL (0.0-0.7) Basophils # (Auto) 0.1 x10^3/uL (0.0-0.2) Sodium Level 139 mmol/L (136-145) Potassium Level 4.0 mmol/L (3.5-5.1) Chloride Level 105 mmol/L (98-107) Carbon Dioxide Level 27 mmol/L (21-32) Anion Gap 7 (6-14) Blood Urea Nitrogen 19 mg/dL (8-26) Creatinine 0.9 mg/dL (0.7-1.3) Estimated GFR (Cockcroft-Gault) 83.9 BUN/Creatinine Ratio 21 (6-20) H Glucose Level 95 mg/dL (70-99) Calcium Level 8.6 mg/dL (8.5-10.1) Total Bilirubin 0.5 mg/dL (0.2-1.0) Aspartate Amino Transferase (AST) 12 U/L (15-37) L Alanine Aminotransferase (ALT) 18 U/L (16-63) Alkaline Phosphatase 51 U/L (46-116) Total Protein 6.5 g/dL (6.4-8.2) Albumin 3.4 g/dL (3.4-5.0) Albumin/Globulin Ratio 1.1 (1.0-1.7) Valproic Acid Level 30 mcg/mL (50-100) L Valproic Acid Last Dose Date 09/27/17 Valproic Acid Last Dose Time 2100 Current Medications: Meds: Current Medications Clonidine HCl (Catapres Tts-2) 1 patch 1X ONCE TD Last administered on at 19:10; Start 09/24/17 at 18:30; Stop 09/24/17 at 18:31; Status DC Clonidine HCl (Catapres Tts-2) 1 patch 1X ONCE TD ; Start 09/24/17 at 20:30; Stop 09/24/17 at 20:31; Status DC Acetaminophen (Tylenol) 650 mg PRN Q6HRS PRN PO MILDPAIN / TEMP Last administered on 09/28/17at 04:12; Start 09/24/17 at 21:30 Multi-Ingredient Ointment (Analgesic Stout) 1 tip PRN QID PRN TP MUSCLE PAIN; Start 09/24/17 at 21:30 Al Hydroxide/Mg Hydroxide (Mylanta Plus Xs) 15 ml PRN AFTMEALHC PRN PO DYSPEPSIA; Start 09/24/17 at 21:30 Magnesium Hydroxide (Milk Of Magnesia) 2,400 mg PRN QHS PRN PO CONSTIPATION 1ST CHOICE; Start 09/24/17 at 21:30 Gabapentin (Neurontin) 400 mg TID PO ; Start 09/25/17 at 09:00; Stop 09/25/17 at 09:00; Status DC Risperidone (RisperDAL) 1 mg BID PO ; Start 09/25/17 at 09:00; Stop 09/25/17 at 09:00; Status DC Trazodone HCl (Desyrel) 200 mg QHS PO ; Start 09/25/17 at 21:00; Stop 09/25/17 at 21:00; Status DC Non-Formulary Medication (Propranolol Hcl ) 60 mg TID PO ; Start 09/25/17 at 09: 00; Stop 09/25/17 at 09:00; Status DC Gabapentin (Neurontin) 400 mg TID PO Last administered on 09/28/17 20:13; Start 09/24/17 at 23:00 Risperidone (RisperDAL) 1 mg BID PO Last administered on 09/28/17 20:13; Start 09/24/17 at 23:00 Trazodone HCl (Desyrel) 200 mg QHS PO Last administered on 09/28/17 20:13; Start 09/24/17 at 23:00 Propranolol HCl (Inderal) 60 mg TID PO ; Start 09/25/17 at 09:00; Stop 09/25/17 at 09:00; Status DC Propranolol HCl (Inderal) 60 mg TID PO Last administered on 09/25/17at 21:04; Start 09/24/17 at 23:45; Stop 09/26/17 at 15:04; Status DC Divalproex Sodium (Depakote Er) 500 mg QHS PO Last administered on 09/26/17at 20 :06; Start 09/25/17 at 21:00; Stop 09/27/17 at 18:26; Status DC Propranolol HCl (Inderal) 40 mg TID PO Last administered on 09/28/17 20:13; Start 09/26/17 at 21:00 Divalproex Sodium (Depakote Sprinkles) 500 mg HS PO Last administered on at 20:09; Start 09/27/17 at 21:00; Stop 09/28/17 at 18:31; Status DC Divalproex Sodium (Depakote Sprinkles) 500 mg BID PO Last administered on at 20:12; Start 09/28/17 at 21:00 Mirtazapine (Remeron) 7.5 mg QHS PO Last administered on 09/28/17at 20:13; Start 09/28/17 at 21:00 Melatonin 3 mg QHS PO Last administered on 09/28/17at 20:13; Start 09/28/17 at 21: 00 Active Scripts Active Reported Trazodone Hcl 100 Mg Tablet 200 Mg PO QHS Risperidone 1 Mg Tablet 1 Mg PO BID Propranolol Hcl 60 Mg Tablet 60 Mg PO TID Neurontin (Gabapentin) 400 Mg Capsule 400 Mg PO TID I have reviewed the current psychotropics carefully including drug interactions. Risk benefit ratio favors no change other than as noted in my dictated progress note. Diagnosis: Problems: (1) Anxiety disorder (2) Confusion (3) Bipolar affective, mixed, severe (4) Bipolar 1 disorder, manic, moderate (5) Schizoaffective disorder, chronic condition with acute exacerbation ZORAIDA MCKEON MD September 28, 2017 21:40
--- NOTE | 2017-09-29 03:17 | PN ---
DATE: 09/27/2017 This is a late entry for 09/27/2017 covers elements not covered in my initial note of 09/27/2017. SUBJECTIVE: I met with the patient in the evening. The patient refused his Depakote ER and we will change it to Sprinkles. REVIEW OF SYSTEMS: No CV, , pulmonary, eye system symptoms on review. He remains somewhat bizarre, grandiose, waving his arms as if he is flying amongst other things, has typical mannerisms, remains psychotic. MENTAL STATUS EXAM: Oriented to himself and situation. Speech coherent, has a typical rhythm. Abstraction fair, computation impaired, language function intact. Mood and affect remain somewhat labile. LABORATORY DATA: Reviewed. IMPRESSION: Schizoaffective disorder, bipolar type, mixed with psychotic features. PLAN: Continue current psychotropics. Change the Depakote ER to Sprinkles. Follow labs level, adjust as indicated on 09/28/2017. MAN Marcie MCKEON MD DR: QUYEN/chapis JOB#: [id number] / [id number]
[2017-09-29 06:26] VITALS: BP 110/62
[2017-09-29] MEDS: risperiDONE 1 MG TABLET. PO SCH ×2 (08:57→21:28)
[2017-09-29] MEDS: GABAPENTIN 400 MG CAPSULE. PO SCH ×3 (08:57→21:28)
[2017-09-29] MEDS: DIVALPROEX 125 MG CAP.SPRINK PO SCH ×2 (08:57→21:28)
[2017-09-29] MEDS: PROPRANOLOL 20 MG TABLET. PO SCH ×3 (08:59→21:27)
[2017-09-29 14:18] VITALS: BP 109/69
[2017-09-29] MEDS: ACETAMINOPHEN 325 MG TABLET PO PRN (14:20)
[2017-09-29 16:59] VITALS: BP 108/53
--- NOTE | 2017-09-29 21:04 | PDOC ---
Exam Note: Sander Note: Please also refer to the separate dictated note~for this date of service dictated separately.~Patient seen individually. Discussed the patient with Nursing staff reviewed the chart.~Reviewed interim history and current functioning. Reviewed vital signs,~Labs/ Radiology~and current medications noted below. Continue current treatment with the changes noted in the dictated addendum note Assessment: Vital Signs: Vital Signs Date Time Temp Pulse Resp B/P (MAP) Pulse Ox O2 Delivery O2 Flow Rate FiO2 09/29/17 16:59 97.8 70 19 108/53 (71) 99 09/24/17 20:36 Room Air I&O Intake and Output 09/29/17 07:00 Intake Total 1440 ml Balance 1440 ml Intake Oral 1440 ml Current Medications: Meds: Current Medications Clonidine HCl (Catapres Tts-2) 1 patch 1X ONCE TD Last administered on at 19:10; Start 09/24/17 at 18:30; Stop 09/24/17 at 18:31; Status DC Clonidine HCl (Catapres Tts-2) 1 patch 1X ONCE TD ; Start 09/24/17 at 20:30; Stop 09/24/17 at 20:31; Status DC Acetaminophen (Tylenol) 650 mg PRN Q6HRS PRN PO MILDPAIN / TEMP Last administered on 09/29/17at 14:20; Start 09/24/17 at 21:30 Multi-Ingredient Ointment (Analgesic Damar) 1 tip PRN QID PRN TP MUSCLE PAIN; Start 09/24/17 at 21:30 Al Hydroxide/Mg Hydroxide (Mylanta Plus Xs) 15 ml PRN AFTMEALHC PRN PO DYSPEPSIA; Start 09/24/17 at 21:30 Magnesium Hydroxide (Milk Of Magnesia) 2,400 mg PRN QHS PRN PO CONSTIPATION 1ST CHOICE; Start 09/24/17 at 21:30 Gabapentin (Neurontin) 400 mg TID PO ; Start 09/25/17 at 09:00; Stop 09/25/17 at 09:00; Status DC Risperidone (RisperDAL) 1 mg BID PO ; Start 09/25/17 at 09:00; Stop 09/25/17 at 09:00; Status DC Trazodone HCl (Desyrel) 200 mg QHS PO ; Start 09/25/17 at 21:00; Stop 09/25/17 at 21:00; Status DC Non-Formulary Medication (Propranolol Hcl ) 60 mg TID PO ; Start 09/25/17 at 09: 00; Stop 09/25/17 at 09:00; Status DC Gabapentin (Neurontin) 400 mg TID PO Last administered on 09/29/17 14:19; Start 09/24/17 at 23:00 Risperidone (RisperDAL) 1 mg BID PO Last administered on 09/29/17 08:57; Start 09/24/17 at 23:00 Trazodone HCl (Desyrel) 200 mg QHS PO Last administered on 09/28/17 20:13; Start 09/24/17 at 23:00 Propranolol HCl (Inderal) 60 mg TID PO ; Start 09/25/17 at 09:00; Stop 09/25/17 at 09:00; Status DC Propranolol HCl (Inderal) 60 mg TID PO Last administered on 09/25/17at 21:04; Start 09/24/17 at 23:45; Stop 09/26/17 at 15:04; Status DC Divalproex Sodium (Depakote Er) 500 mg QHS PO Last administered on 09/26/17 20 :06; Start 09/25/17 at 21:00; Stop 09/27/17 at 18:26; Status DC Propranolol HCl (Inderal) 40 mg TID PO Last administered on 09/29/17 14:19; Start 09/26/17 at 21:00 Divalproex Sodium (Depakote Sprinkles) 500 mg HS PO Last administered on 20:09; Start 09/27/17 at 21:00; Stop 09/28/17 at 18:31; Status DC Divalproex Sodium (Depakote Sprinkles) 500 mg BID PO Last administered on 08:57; Start 09/28/17 at 21:00 Mirtazapine (Remeron) 7.5 mg QHS PO Last administered on 09/28/17 20:13; Start 09/28/17 at 21:00 Melatonin 3 mg QHS PO Last administered on 09/28/17 20:13; Start 09/28/17 at 21: 00 Active Scripts Active Reported Trazodone Hcl 100 Mg Tablet 200 Mg PO QHS Risperidone 1 Mg Tablet 1 Mg PO BID Propranolol Hcl 60 Mg Tablet 60 Mg PO TID Neurontin (Gabapentin) 400 Mg Capsule 400 Mg PO TID I have reviewed the current psychotropics carefully including drug interactions. Risk benefit ratio favors no change other than as noted in my dictated progress note. Diagnosis: Problems: (1) Anxiety disorder (2) Confusion (3) Bipolar affective, mixed, severe (4) Bipolar 1 disorder, manic, moderate (5) Schizoaffective disorder, chronic condition with acute exacerbation ZORAIDA MCKEON MD September 29, 2017 21:04
[2017-09-29] MEDS: MELATONIN 3 MG TABLET PO SCH (21:27)
[2017-09-29] MEDS: MIRTAZAPINE 7.5 MG TABLET. PO SCH (21:27)
[2017-09-29] MEDS: traZODone 100 MG TABLET. PO SCH (21:28)
[2017-09-30 05:47] VITALS: BP 129/57
[2017-09-30] MEDS: risperiDONE 1 MG TABLET. PO SCH ×2 (08:25→19:06)
[2017-09-30] MEDS: GABAPENTIN 400 MG CAPSULE. PO SCH ×3 (08:25→19:06)
[2017-09-30] MEDS: DIVALPROEX 125 MG CAP.SPRINK PO SCH ×2 (08:25→19:05)
[2017-09-30] MEDS: PROPRANOLOL 20 MG TABLET. PO SCH ×3 (08:27→19:06)
--- NOTE | 2017-09-30 09:30 | PN ---
DATE: 09/28/2017 PSYCHIATRIC PROGRESS NOTE This is a late entry 09/28/2017, covers elements not covered in my initial note. I met with the patient in the evening. The patient did not sleep at all previous evening. He remains somewhat grandiose, ____, overly expressive, psychotic, believes he is flying in the air, makes hand gestures consistent with this. REVIEW OF SYSTEMS: No CV, , pulmonary, eye, ENT system symptoms on review. MENTAL STATUS EXAM: Oriented to himself and situation. Speech coherent, rapid at times. Abstraction fair, computation impaired, language function intact, attention span short. Mood and affect remain somewhat labile, still grandiose. LABORATORY DATA: Reviewed. IMPRESSION: Schizoaffective disorder, bipolar type, mixed with psychotic features; schizophrenia, chronic, undifferentiated with acute exacerbation. PLAN: Valproic acid level is subtherapeutic at 30, on Depakote Sprinkle 500 mg at bedtime, we will increase to 500 mg twice a day. Check CBC, CMP, and valproic acid level in 3 days. Start Remeron 7.5 mg at bedtime to help with insomnia and melatonin 3 mg at bedtime. MAN Marcie MCKEON MD DR: QUYEN/chapis JOB#: [id number] / [id number]
[2017-09-30 13:40] VITALS: BP 117/78
[2017-09-30] MEDS: ACETAMINOPHEN 325 MG TABLET PO PRN ×2 (13:42→19:07)
[2017-09-30 16:30] VITALS: BP 148/83
[2017-09-30] MEDS: MIRTAZAPINE 7.5 MG TABLET. PO SCH (19:05)
[2017-09-30] MEDS: traZODone 100 MG TABLET. PO SCH (19:06)
[2017-09-30] MEDS: MELATONIN 3 MG TABLET PO SCH (19:06)
--- NOTE | 2017-09-30 21:07 | PDOC ---
Exam Note: Sander Note: Please also refer to the separate dictated note~for this date of service dictated separately.~Patient seen individually. Discussed the patient with Nursing staff reviewed the chart.~Reviewed interim history and current functioning. Reviewed vital signs,~Labs/ Radiology~and current medications noted below. Continue current treatment with the changes noted in the dictated addendum note Assessment: Vital Signs: Vital Signs Date Time Temp Pulse Resp B/P (MAP) Pulse Ox O2 Delivery O2 Flow Rate FiO2 09/30/17 19:06 88 148/83 09/30/17 16:30 96.9 19 100 09/24/17 20:36 Room Air I&O Intake and Output 09/30/17 07:00 Intake Total 1380 ml Balance 1380 ml Intake Oral 1380 ml Current Medications: Meds: Current Medications Clonidine HCl (Catapres Tts-2) 1 patch 1X ONCE TD Last administered on at 19:10; Start 09/24/17 at 18:30; Stop 09/24/17 at 18:31; Status DC Clonidine HCl (Catapres Tts-2) 1 patch 1X ONCE TD ; Start 09/24/17 at 20:30; Stop 09/24/17 at 20:31; Status DC Acetaminophen (Tylenol) 650 mg PRN Q6HRS PRN PO MILDPAIN / TEMP Last administered on 09/30/17at 19:07; Start 09/24/17 at 21:30 Multi-Ingredient Ointment (Analgesic Wickett) 1 tip PRN QID PRN TP MUSCLE PAIN; Start 09/24/17 at 21:30 Al Hydroxide/Mg Hydroxide (Mylanta Plus Xs) 15 ml PRN AFTMEALHC PRN PO DYSPEPSIA; Start 09/24/17 at 21:30 Magnesium Hydroxide (Milk Of Magnesia) 2,400 mg PRN QHS PRN PO CONSTIPATION 1ST CHOICE; Start 09/24/17 at 21:30 Gabapentin (Neurontin) 400 mg TID PO ; Start 09/25/17 at 09:00; Stop 09/25/17 at 09:00; Status DC Risperidone (RisperDAL) 1 mg BID PO ; Start 09/25/17 at 09:00; Stop 09/25/17 at 09:00; Status DC Trazodone HCl (Desyrel) 200 mg QHS PO ; Start 09/25/17 at 21:00; Stop 09/25/17 at 21:00; Status DC Non-Formulary Medication (Propranolol Hcl ) 60 mg TID PO ; Start 09/25/17 at 09: 00; Stop 09/25/17 at 09:00; Status DC Gabapentin (Neurontin) 400 mg TID PO Last administered on 09/30/17 19:06; Start 09/24/17 at 23:00 Risperidone (RisperDAL) 1 mg BID PO Last administered on 09/30/17 19:06; Start 09/24/17 at 23:00 Trazodone HCl (Desyrel) 200 mg QHS PO Last administered on 09/30/17 19:06; Start 09/24/17 at 23:00 Propranolol HCl (Inderal) 60 mg TID PO ; Start 09/25/17 at 09:00; Stop 09/25/17 at 09:00; Status DC Propranolol HCl (Inderal) 60 mg TID PO Last administered on 09/25/17at 21:04; Start 09/24/17 at 23:45; Stop 09/26/17 at 15:04; Status DC Divalproex Sodium (Depakote Er) 500 mg QHS PO Last administered on 09/26/17 20 :06; Start 09/25/17 at 21:00; Stop 09/27/17 at 18:26; Status DC Propranolol HCl (Inderal) 40 mg TID PO Last administered on 09/30/17 19:06; Start 09/26/17 at 21:00 Divalproex Sodium (Depakote Sprinkles) 500 mg HS PO Last administered on 20:09; Start 09/27/17 at 21:00; Stop 09/28/17 at 18:31; Status DC Divalproex Sodium (Depakote Sprinkles) 500 mg BID PO Last administered on 19:05; Start 09/28/17 at 21:00 Mirtazapine (Remeron) 7.5 mg QHS PO Last administered on 09/30/17 19:05; Start 09/28/17 at 21:00 Melatonin 3 mg QHS PO Last administered on 09/30/17 19:06; Start 09/28/17 at 21: 00 Active Scripts Active Reported Trazodone Hcl 100 Mg Tablet 200 Mg PO QHS Risperidone 1 Mg Tablet 1 Mg PO BID Propranolol Hcl 60 Mg Tablet 60 Mg PO TID Neurontin (Gabapentin) 400 Mg Capsule 400 Mg PO TID I have reviewed the current psychotropics carefully including drug interactions. Risk benefit ratio favors no change other than as noted in my dictated progress note. Diagnosis: Problems: (1) Anxiety disorder (2) Confusion (3) Bipolar affective, mixed, severe (4) Bipolar 1 disorder, manic, moderate (5) Schizoaffective disorder, chronic condition with acute exacerbation ZORAIDA MCKEON MD September 30, 2017 21:07
--- NOTE | 2017-09-30 21:33 | PN ---
DATE: 09/29/2017 PSYCHIATRIC PROGRESS NOTE This late entry 09/29/2017 covers elements not covered in my initial note of 09/29/2017. SUBJECTIVE: Met with the patient in the evening of 09/29/2017 Per nursing report, the patient remains fairly bizarre, psychotic, makes hand motions and gestures as if he is flying things. He is explaining something. This is fairly consistent with his ongoing psychosis, grandiosity, mood lability. REVIEW OF SYSTEMS: No CV, , pulmonary, eye, ENT system symptoms on review. MENTAL STATUS EXAM: Oriented to himself, situation. Speech has a typical rhythm and shanice. Abstraction is fair, computation impaired, language function intact, attention span short. Mood and affect remains somewhat labile. LABORATORY DATA: Reviewed. IMPRESSION: Schizoaffective disorder, bipolar type, mixed with psychotic features, schizophrenia, chronic, undifferentiated with acute exacerbation and psychotic features. Rest unchanged. PLAN: Maintain Risperdal 4 mg b.i.d., trazodone 200 mg at bedtime, Remeron 7.5 mg at bedtime, melatonin 3 mg at bedtime. Valproic acid level is low at 30 and Depakote Sprinkles have been increased to 500 mg b.i.d. with repeat CBC, CMP, valproic acid level to be checked on 10/01/2017 and then we will adjust it further to reach therapeutic level. Maintain Risperdal, though Ideally, I would like to reduce it down, but I would like to see how he does with the therapeutic Depakote before deciding on this or changing the Risperdal to an alternate, add a psychotic. MAN Marcie MCKEON MD DR: QUYEN/chapis JOB#: [id number] / [id number]
--- NOTE | 2017-09-30 21:43 | PN ---
DATE: 09/30/2017 PSYCHIATRIC PROGRESS NOTE This note covers elements not covered in my initial note of 09/30/2017. SUBJECTIVE: The patient was staffed at treatment team meeting with the entire team on morning of 09/30/2017 and I met with him individually. He is sleeping an average of 8 hours, appetite 80%. He remains quite psychotic, bizarre, was making a curved-like motion with his arms explaining the weight of nursing staff. Socially, very inappropriate, remains psychotic, bizarre in his thought processes, but less labile. REVIEW OF SYSTEMS: No CV, , pulmonary, eye, ENT system symptoms on review. MENTAL STATUS EXAM: Oriented to himself, situation. Speech has a typical shanice and rhythm as noted. Abstraction is fair, computation impaired, language function intact, attention span short. Mood and affect remain somewhat labile. At treatment team meeting, addressed at length his living arrangements in independent living at the apartment at [facility]. He is getting to her stage of his chronic psychotic disorder that perhaps he may be unable to live on his own and social service staff is looking at more structured placement as an option if possible and discussed this with Yaneth, director of social media marketing, and she will coordinate with [facility] [place]. No active suicidal or homicidal ideation, but the thought disorder is fairly significant though it showing some improvement as the Depakote has been adjusted. LABORATORY DATA: Reviewed. IMPRESSION: Schizoaffective disorder, bipolar type, mixed with psychotic features. Rest unchanged. PLAN: Continue current psychotropics mentioned in my initial note. Check valproic acid level, CBC, CMP on morning of 10/01/2017. Adjust the Depakote to reach a therapeutic level and then consider whether the Risperdal needs to be adjusted downward since ____ mg a day, above the upper limit of 6 mg a day recommended for it. All we may need to change the Risperdal to an alternate antipsychotic. An option of Clozaril is being considered as well. MAN Marcie MCKEON MD DR: QUYEN/chapis JOB#: [id number] / [id number]
[2017-10-01] MEDS: ACETAMINOPHEN 325 MG TABLET PO PRN ×2 (02:18→15:46)
[2017-10-01 06:07] VITALS: BP 98/66
[2017-10-01 07:54] VITALS: BP 124/73
[2017-10-01 08:27] LABS: BASO # 0.1 x10^3/uL (0.0-0.2); BASO % 2 % (0-3); EOS # 0.4 x10^3/uL (0.0-0.7); EOS % 8 % (0-3); HEMATOCRIT 40.9 % (39.0-53.0); HEMOGLOBIN 14.1 g/dL (13.0-17.5); LYMPH # 1.7 x10^3/uL (1.0-4.8); LYMPH % 32 % (24-48); MEAN CORPUSCULAR HEMOGLOBIN 33 pg (25-35); MEAN CORPUSCULAR HGB CONC 35 g/dL (31-37); MEAN CORPUSCULAR VOLUME 97 fL (79-100); MONO # 0.5 x10^3/uL (0.0-1.1); MONO % 10 % (0-9); NEUT # 2.6 x10^3uL (1.8-7.7); NEUT % 49 % (31-73); PLATELET COUNT 172 x10^3/uL (140-400); RED BLOOD COUNT 4.23 x10^6/uL (4.30-5.70); RED CELL DISTRIBUTION WIDTH 13.8 % (11.5-14.5); WHITE BLOOD COUNT 5.3 x10^3/uL (4.0-11.0)
[2017-10-01] MEDS: risperiDONE 1 MG TABLET. PO SCH ×2 (08:57→19:36)
[2017-10-01] MEDS: DIVALPROEX 125 MG CAP.SPRINK PO SCH ×2 (08:57→19:37)
[2017-10-01] MEDS: GABAPENTIN 400 MG CAPSULE. PO SCH ×3 (08:57→19:36)
[2017-10-01] MEDS: PROPRANOLOL 20 MG TABLET. PO SCH ×3 (08:58→19:37)
[2017-10-01 09:03] LABS: ALBUMIN 3.6 g/dL (3.4-5.0); ALBUMIN/GLOBULIN RATIO 1.1 (1.0-1.7); ALK PHOS 52 U/L (46-116); ALT (SGPT) 21 U/L (16-63); ANION GAP 5 (6-14); AST (SGOT) 13 U/L (15-37); BLOOD UREA NITROGEN 15 mg/dL (8-26); BUN/CREATININE RATIO 15 (6-20); CALCIUM 8.9 mg/dL (8.5-10.1); CARBON DIOXIDE 30 mmol/L (21-32); CHLORIDE 104 mmol/L (98-107); GFR 74.3; GLUCOSE 83 mg/dL (70-99); POTASSIUM 4.8 mmol/L (3.5-5.1); SODIUM 139 mmol/L (136-145); TOTAL BILIRUBIN 0.4 mg/dL (0.2-1.0); TOTAL PROTEIN 6.8 g/dL (6.4-8.2); VAL ACID 52 mcg/mL (50-100)
[2017-10-01 14:01] VITALS: BP 106/73
[2017-10-01 16:00] VITALS: BP 101/68
[2017-10-01] MEDS: traZODone 100 MG TABLET. PO SCH (19:36)
[2017-10-01] MEDS: MIRTAZAPINE 7.5 MG TABLET. PO SCH (19:36)
[2017-10-01] MEDS: MELATONIN 3 MG TABLET PO SCH (19:37)
--- NOTE | 2017-10-01 21:11 | PDOC ---
Exam Note: Sander Note: Please also refer to the separate dictated note~for this date of service dictated separately.~Patient seen individually. Discussed the patient with Nursing staff reviewed the chart.~Reviewed interim history and current functioning. Reviewed vital signs,~Labs/ Radiology~and current medications noted below. Continue current treatment with the changes noted in the dictated addendum note Assessment: Vital Signs: Vital Signs Date Time Temp Pulse Resp B/P (MAP) Pulse Ox O2 Delivery O2 Flow Rate FiO2 10/01/17 19:37 68 101/68 10/01/17 16:00 97.9 18 98 I&O Intake and Output 10/01/17 07:00 Intake Total 1040 ml Balance 1040 ml Intake Oral 1040 ml Labs: Laboratory Tests Test 10/01/17 07:08 White Blood Count 5.3 x10^3/uL (4.0-11.0) Red Blood Count 4.23 x10^6/uL (4.30-5.70) L Hemoglobin 14.1 g/dL (13.0-17.5) Hematocrit 40.9 % (39.0-53.0) Mean Corpuscular Volume 97 fL (79-100) Mean Corpuscular Hemoglobin 33 pg (25-35) Mean Corpuscular Hemoglobin Concent 35 g/dL (31-37) Red Cell Distribution Width 13.8 % (11.5-14.5) Platelet Count 172 x10^3/uL (140-400) Neutrophils (%) (Auto) 49 % (31-73) Lymphocytes (%) (Auto) 32 % (24-48) Monocytes (%) (Auto) 10 % (0-9) H Eosinophils (%) (Auto) 8 % (0-3) H Basophils (%) (Auto) 2 % (0-3) Neutrophils # (Auto) 2.6 x10^3uL (1.8-7.7) Lymphocytes # (Auto) 1.7 x10^3/uL (1.0-4.8) Monocytes # (Auto) 0.5 x10^3/uL (0.0-1.1) Eosinophils # (Auto) 0.4 x10^3/uL (0.0-0.7) Basophils # (Auto) 0.1 x10^3/uL (0.0-0.2) Sodium Level 139 mmol/L (136-145) Potassium Level 4.8 mmol/L (3.5-5.1) Chloride Level 104 mmol/L (98-107) Carbon Dioxide Level 30 mmol/L (21-32) Anion Gap 5 (6-14) L Blood Urea Nitrogen 15 mg/dL (8-26) Creatinine 1.0 mg/dL (0.7-1.3) Estimated GFR (Cockcroft-Gault) 74.3 BUN/Creatinine Ratio 15 (6-20) Glucose Level 83 mg/dL (70-99) Calcium Level 8.9 mg/dL (8.5-10.1) Total Bilirubin 0.4 mg/dL (0.2-1.0) Aspartate Amino Transferase (AST) 13 U/L (15-37) L Alanine Aminotransferase (ALT) 21 U/L (16-63) Alkaline Phosphatase 52 U/L (46-116) Total Protein 6.8 g/dL (6.4-8.2) Albumin 3.6 g/dL (3.4-5.0) Albumin/Globulin Ratio 1.1 (1.0-1.7) Valproic Acid Level 52 mcg/mL (50-100) Valproic Acid Last Dose Date 09/30/2017 Valproic Acid Last Dose Time 2100 Current Medications: Meds: Current Medications Clonidine HCl (Catapres Tts-2) 1 patch 1X ONCE TD Last administered on at 19:10; Start 09/24/17 at 18:30; Stop 09/24/17 at 18:31; Status DC Clonidine HCl (Catapres Tts-2) 1 patch 1X ONCE TD ; Start 09/24/17 at 20:30; Stop 09/24/17 at 20:31; Status DC Acetaminophen (Tylenol) 650 mg PRN Q6HRS PRN PO MILDPAIN / TEMP Last administered on 10/01/17at 15:46; Start 09/24/17 at 21:30 Multi-Ingredient Ointment (Analgesic Dustin) 1 tip PRN QID PRN TP MUSCLE PAIN; Start 09/24/17 at 21:30 Al Hydroxide/Mg Hydroxide (Mylanta Plus Xs) 15 ml PRN AFTMEALHC PRN PO DYSPEPSIA; Start 09/24/17 at 21:30 Magnesium Hydroxide (Milk Of Magnesia) 2,400 mg PRN QHS PRN PO CONSTIPATION 1ST CHOICE; Start 09/24/17 at 21:30 Gabapentin (Neurontin) 400 mg TID PO ; Start 09/25/17 at 09:00; Stop 09/25/17 at 09:00; Status DC Risperidone (RisperDAL) 1 mg BID PO ; Start 09/25/17 at 09:00; Stop 09/25/17 at 09:00; Status DC Trazodone HCl (Desyrel) 200 mg QHS PO ; Start 09/25/17 at 21:00; Stop 09/25/17 at 21:00; Status DC Non-Formulary Medication (Propranolol Hcl ) 60 mg TID PO ; Start 09/25/17 at 09: 00; Stop 09/25/17 at 09:00; Status DC Gabapentin (Neurontin) 400 mg TID PO Last administered on 10/01/17 19:36; Start 09/24/17 at 23:00 Risperidone (RisperDAL) 1 mg BID PO Last administered on 10/01/17 19:36; Start 09/24/17 at 23:00 Trazodone HCl (Desyrel) 200 mg QHS PO Last administered on 10/01/17 19:36; Start 09/24/17 at 23:00 Propranolol HCl (Inderal) 60 mg TID PO ; Start 09/25/17 at 09:00; Stop 09/25/17 at 09:00; Status DC Propranolol HCl (Inderal) 60 mg TID PO Last administered on 09/25/17at 21:04; Start 09/24/17 at 23:45; Stop 09/26/17 at 15:04; Status DC Divalproex Sodium (Depakote Er) 500 mg QHS PO Last administered on 09/26/17at 20 :06; Start 09/25/17 at 21:00; Stop 09/27/17 at 18:26; Status DC Propranolol HCl (Inderal) 40 mg TID PO Last administered on 10/01/17at 08:58; Start 09/26/17 at 21:00 Divalproex Sodium (Depakote Sprinkles) 500 mg HS PO Last administered on at 20:09; Start 09/27/17 at 21:00; Stop 5/1/18 at 18:31; Status DC Divalproex Sodium (Depakote Sprinkles) 500 mg BID PO Last administered on at 19:37; Start 09/28/17 at 21:00 Mirtazapine (Remeron) 7.5 mg QHS PO Last administered on 10/01/17at 19:36; Start 09/28/17 at 21:00 Melatonin 3 mg QHS PO Last administered on 10/01/17at 19:37; Start 09/28/17 at 21: 00 Active Scripts Active Reported Trazodone Hcl 100 Mg Tablet 200 Mg PO QHS Risperidone 1 Mg Tablet 1 Mg PO BID Propranolol Hcl 60 Mg Tablet 60 Mg PO TID Neurontin (Gabapentin) 400 Mg Capsule 400 Mg PO TID I have reviewed the current psychotropics carefully including drug interactions. Risk benefit ratio favors no change other than as noted in my dictated progress note. Diagnosis: Problems: (1) Anxiety disorder (2) Confusion (3) Bipolar affective, mixed, severe (4) Bipolar 1 disorder, manic, moderate (5) Schizoaffective disorder, chronic condition with acute exacerbation ZORAIDA MCKEON MD October 01, 2017 21:11
--- NOTE | 2017-10-02 05:19 | PN ---
DATE: PSYCHIATRIC PROGRESS NOTE DATE OF SERVICE: 09/29/2017 This late entry 09/29/2017 covers elements not covered in my initial note. SUBJECTIVE: I met with the patient in the evening of 09/29/2017. The patient remains quite psychotic, disorganized, talking about Dany Patel, intermittently hallucinating, bizarre in verbalizations. REVIEW OF SYSTEMS: No CV, , pulmonary, eye, ENT system symptoms on review. Reliability varies. MENTAL STATUS EXAM: Oriented to himself and situation. Speech has a typical shanice rhythm. Abstraction fair, computation impaired, language function intact, attention span short. Mood and affect remains labile. LABORATORIES: Reviewed. IMPRESSION: Unchanged from initial note. PLAN: Continue current psychotropics. MAN Marcie MCKEON MD DR: QUYEN/chapis JOB#: [id number] / [id number]
[2017-10-02 06:28] VITALS: BP 96/64
[2017-10-02 08:09] VITALS: BP 115/53
[2017-10-02] MEDS: ACETAMINOPHEN 325 MG TABLET PO PRN ×3 (09:02→23:57)
[2017-10-02] MEDS: GABAPENTIN 400 MG CAPSULE. PO SCH ×3 (09:02→19:45)
[2017-10-02] MEDS: risperiDONE 1 MG TABLET. PO SCH ×2 (09:02→19:45)
[2017-10-02] MEDS: DIVALPROEX 125 MG CAP.SPRINK PO SCH ×2 (09:02→19:45)
[2017-10-02] MEDS: PROPRANOLOL 20 MG TABLET. PO SCH ×2 (09:03→19:46)
[2017-10-02 14:14] VITALS: BP 111/70
[2017-10-02 17:03] VITALS: BP 116/66
[2017-10-02] MEDS: MIRTAZAPINE 7.5 MG TABLET. PO SCH (19:44)
[2017-10-02] MEDS: MELATONIN 3 MG TABLET PO SCH (19:45)
[2017-10-02] MEDS: traZODone 100 MG TABLET. PO SCH (19:45)
--- NOTE | 2017-10-02 23:08 | PDOC ---
Exam Note: Sander Note: Please also refer to the separate dictated note~for this date of service dictated separately.~Patient seen individually. Discussed the patient with Nursing staff reviewed the chart.~Reviewed interim history and current functioning. Reviewed vital signs,~Labs/ Radiology~and current medications noted below. Continue current treatment with the changes noted in the dictated addendum note Assessment: Vital Signs: Vital Signs Date Time Temp Pulse Resp B/P (MAP) Pulse Ox O2 Delivery O2 Flow Rate FiO2 10/02/17 19:46 75 116/66 10/02/17 17:03 97.6 16 99 I&O Intake and Output 10/02/17 07:00 Intake Total 1200 ml Balance 1200 ml Intake Oral 1200 ml Current Medications: Meds: Current Medications Clonidine HCl (Catapres Tts-2) 1 patch 1X ONCE TD Last administered on at 19:10; Start 09/24/17 at 18:30; Stop 09/24/17 at 18:31; Status DC Clonidine HCl (Catapres Tts-2) 1 patch 1X ONCE TD ; Start 09/24/17 at 20:30; Stop 09/24/17 at 20:31; Status DC Acetaminophen (Tylenol) 650 mg PRN Q6HRS PRN PO MILDPAIN / TEMP Last administered on 10/02/17at 16:40; Start 09/24/17 at 21:30 Multi-Ingredient Ointment (Analgesic Dwight) 1 tip PRN QID PRN TP MUSCLE PAIN; Start 09/24/17 at 21:30 Al Hydroxide/Mg Hydroxide (Mylanta Plus Xs) 15 ml PRN AFTMEALHC PRN PO DYSPEPSIA; Start 09/24/17 at 21:30 Magnesium Hydroxide (Milk Of Magnesia) 2,400 mg PRN QHS PRN PO CONSTIPATION 1ST CHOICE; Start 09/24/17 at 21:30 Gabapentin (Neurontin) 400 mg TID PO ; Start 09/25/17 at 09:00; Stop 09/25/17 at 09:00; Status DC Risperidone (RisperDAL) 1 mg BID PO ; Start 09/25/17 at 09:00; Stop 09/25/17 at 09:00; Status DC Trazodone HCl (Desyrel) 200 mg QHS PO ; Start 09/25/17 at 21:00; Stop 09/25/17 at 21:00; Status DC Non-Formulary Medication (Propranolol Hcl ) 60 mg TID PO ; Start 09/25/17 at 09: 00; Stop 09/25/17 at 09:00; Status DC Gabapentin (Neurontin) 400 mg TID PO Last administered on 10/02/17 19:45; Start 09/24/17 at 23:00 Risperidone (RisperDAL) 1 mg BID PO Last administered on 10/02/17 19:45; Start 09/24/17 at 23:00 Trazodone HCl (Desyrel) 200 mg QHS PO Last administered on 10/02/17 19:45; Start 09/24/17 at 23:00 Propranolol HCl (Inderal) 60 mg TID PO ; Start 09/25/17 at 09:00; Stop 09/25/17 at 09:00; Status DC Propranolol HCl (Inderal) 60 mg TID PO Last administered on 09/25/17at 21:04; Start 09/24/17 at 23:45; Stop 09/26/17 at 15:04; Status DC Divalproex Sodium (Depakote Er) 500 mg QHS PO Last administered on 09/26/17 20 :06; Start 09/25/17 at 21:00; Stop 09/27/17 at 18:26; Status DC Propranolol HCl (Inderal) 40 mg TID PO Last administered on 10/02/17 09:03; Start 09/26/17 at 21:00; Stop 10/02/17 at 15:18; Status DC Divalproex Sodium (Depakote Sprinkles) 500 mg HS PO Last administered on 20:09; Start 09/27/17 at 21:00; Stop 09/28/17 at 18:31; Status DC Divalproex Sodium (Depakote Sprinkles) 500 mg BID PO Last administered on 19:45; Start 09/28/17 at 21:00 Mirtazapine (Remeron) 7.5 mg QHS PO Last administered on 10/02/17 19:44; Start 09/28/17 at 21:00 Melatonin 3 mg QHS PO Last administered on 10/02/17 19:45; Start 09/28/17 at 21: 00 Propranolol HCl (Inderal) 40 mg BID PO ; Start 10/02/17 at 21:00 Active Scripts Active Reported Trazodone Hcl 100 Mg Tablet 200 Mg PO QHS Risperidone 1 Mg Tablet 1 Mg PO BID Propranolol Hcl 60 Mg Tablet 60 Mg PO TID Neurontin (Gabapentin) 400 Mg Capsule 400 Mg PO TID I have reviewed the current psychotropics carefully including drug interactions. Risk benefit ratio favors no change other than as noted in my dictated progress note. Diagnosis: Problems: (1) Anxiety disorder (2) Confusion (3) Bipolar affective, mixed, severe (4) Bipolar 1 disorder, manic, moderate (5) Schizoaffective disorder, chronic condition with acute exacerbation ZORAIDA MCKEON MD October 02, 2017 23:08
[2017-10-03] MEDS: ACETAMINOPHEN 325 MG TABLET PO PRN (06:06)
[2017-10-03 06:25] VITALS: BP 111/61
[2017-10-03] MEDS: DIVALPROEX 125 MG CAP.SPRINK PO SCH ×2 (09:04→19:30)
[2017-10-03] MEDS: risperiDONE 1 MG TABLET. PO SCH ×2 (09:04→19:30)
[2017-10-03] MEDS: GABAPENTIN 400 MG CAPSULE. PO SCH ×3 (09:04→19:30)
[2017-10-03] MEDS: PROPRANOLOL 20 MG TABLET. PO SCH ×2 (09:06→21:14)
[2017-10-03 16:46] VITALS: BP 109/72
--- NOTE | 2017-10-03 18:54 | PDOC ---
Exam Note: Sander Note: Please also refer to the separate dictated note~for this date of service dictated separately.~Patient seen individually. Discussed the patient with Nursing staff reviewed the chart.~Reviewed interim history and current functioning. Reviewed vital signs,~Labs/ Radiology~and current medications noted below. Continue current treatment with the changes noted in the dictated addendum note Assessment: Vital Signs: Vital Signs Date Time Temp Pulse Resp B/P (MAP) Pulse Ox O2 Delivery O2 Flow Rate FiO2 10/03/17 16:46 97.6 70 18 109/72 (84) 97 I&O Intake and Output 10/03/17 07:00 Intake Total 960 ml Balance 960 ml Intake Oral 960 ml Current Medications: Meds: Current Medications Clonidine HCl (Catapres Tts-2) 1 patch 1X ONCE TD Last administered on at 19:10; Start 09/24/17 at 18:30; Stop 09/24/17 at 18:31; Status DC Clonidine HCl (Catapres Tts-2) 1 patch 1X ONCE TD ; Start 09/24/17 at 20:30; Stop 09/24/17 at 20:31; Status DC Acetaminophen (Tylenol) 650 mg PRN Q6HRS PRN PO MILDPAIN / TEMP Last administered on 10/03/17at 06:06; Start 09/24/17 at 21:30 Multi-Ingredient Ointment (Analgesic [place]) 1 tip PRN QID PRN TP MUSCLE PAIN; Start 09/24/17 at 21:30 Al Hydroxide/Mg Hydroxide (Mylanta Plus Xs) 15 ml PRN AFTMEALHC PRN PO DYSPEPSIA; Start 09/24/17 at 21:30 Magnesium Hydroxide (Milk Of Magnesia) 2,400 mg PRN QHS PRN PO CONSTIPATION 1ST CHOICE; Start 09/24/17 at 21:30 Gabapentin (Neurontin) 400 mg TID PO ; Start 09/25/17 at 09:00; Stop 09/25/17 at 09:00; Status DC Risperidone (RisperDAL) 1 mg BID PO ; Start 09/25/17 at 09:00; Stop 09/25/17 at 09:00; Status DC Trazodone HCl (Desyrel) 200 mg QHS PO ; Start 09/25/17 at 21:00; Stop 09/25/17 at 21:00; Status DC Non-Formulary Medication (Propranolol Hcl ) 60 mg TID PO ; Start 09/25/17 at 09: 00; Stop 09/25/17 at 09:00; Status DC Gabapentin (Neurontin) 400 mg TID PO Last administered on 10/03/17 15:20; Start 09/24/17 at 23:00 Risperidone (RisperDAL) 1 mg BID PO Last administered on 10/03/17 09:04; Start 09/24/17 at 23:00 Trazodone HCl (Desyrel) 200 mg QHS PO Last administered on 10/02/17 19:45; Start 09/24/17 at 23:00 Propranolol HCl (Inderal) 60 mg TID PO ; Start 09/25/17 at 09:00; Stop 09/25/17 at 09:00; Status DC Propranolol HCl (Inderal) 60 mg TID PO Last administered on 09/25/17at 21:04; Start 09/24/17 at 23:45; Stop 09/26/17 at 15:04; Status DC Divalproex Sodium (Depakote Er) 500 mg QHS PO Last administered on 09/26/17 20 :06; Start 09/25/17 at 21:00; Stop 09/27/17 at 18:26; Status DC Propranolol HCl (Inderal) 40 mg TID PO Last administered on 10/02/17 09:03; Start 09/26/17 at 21:00; Stop 10/02/17 at 15:18; Status DC Divalproex Sodium (Depakote Sprinkles) 500 mg HS PO Last administered on 20:09; Start 09/27/17 at 21:00; Stop 09/28/17 at 18:31; Status DC Divalproex Sodium (Depakote Sprinkles) 500 mg BID PO Last administered on 09:04; Start 09/28/17 at 21:00 Mirtazapine (Remeron) 7.5 mg QHS PO Last administered on 10/02/17 19:44; Start 09/28/17 at 21:00 Melatonin 3 mg QHS PO Last administered on 10/02/17 19:45; Start 09/28/17 at 21: 00 Propranolol HCl (Inderal) 40 mg BID PO Last administered on 10/03/17at 09:06; Start 10/02/17 at 21:00 Active Scripts Active Reported Trazodone Hcl 100 Mg Tablet 200 Mg PO QHS Risperidone 1 Mg Tablet 1 Mg PO BID Propranolol Hcl 60 Mg Tablet 60 Mg PO TID Neurontin (Gabapentin) 400 Mg Capsule 400 Mg PO TID I have reviewed the current psychotropics carefully including drug interactions. Risk benefit ratio favors no change other than as noted in my dictated progress note. Diagnosis: Problems: (1) Schizoaffective disorder, chronic condition with acute exacerbation (2) Bipolar 1 disorder, manic, moderate (3) Bipolar affective, mixed, severe (4) Anxiety disorder ZORAIDA MCKOEN MD October 03, 2017 18:54
[2017-10-03] MEDS: MELATONIN 3 MG TABLET PO SCH (19:30)
[2017-10-03] MEDS: MIRTAZAPINE 7.5 MG TABLET. PO SCH (19:30)
[2017-10-03] MEDS: traZODone 100 MG TABLET. PO SCH (19:30)
[2017-10-04] MEDS: ACETAMINOPHEN 325 MG TABLET PO PRN (04:49)
[2017-10-04 06:22] VITALS: BP 110/74
[2017-10-04] MEDS: GABAPENTIN 400 MG CAPSULE. PO SCH ×2 (06:32→13:32)
[2017-10-04] MEDS: risperiDONE 1 MG TABLET. PO SCH (06:32)
[2017-10-04] MEDS: DIVALPROEX 125 MG CAP.SPRINK PO SCH (06:33)
[2017-10-04 08:38] VITALS: BP 110/74
[2017-10-04] MEDS: PROPRANOLOL 20 MG TABLET. PO SCH (08:38)
[2017-10-04] MEDS ORDERED: ACET325T9 PO (11:17)
[2017-10-04] MEDS ORDERED: DIVA125C PO (11:18)
[2017-10-04] MEDS ORDERED: MAG355OR71 PO (11:19)
[2017-10-04] MEDS ORDERED: MELA3TAB2 PO (11:20)
[2017-10-04] MEDS ORDERED: MAGN2400 PO (11:20)
[2017-10-04] MEDS ORDERED: METH29OI TP (11:21)
[2017-10-04] MEDS ORDERED: MIRT15TA3 PO (11:22)
--- NOTE | 2017-10-04 18:44 | PDOC ---
Exam Note: Sander Note: Please also refer to the separate dictated note~for this date of service dictated separately.~Patient seen individually. Discussed the patient with Nursing staff reviewed the chart.~Reviewed interim history and current functioning. Reviewed vital signs,~Labs/ Radiology~and current medications noted below. Continue current treatment with the changes noted in the dictated addendum note Assessment: Vital Signs: Vital Signs Date Time Temp Pulse Resp B/P (MAP) Pulse Ox O2 Delivery O2 Flow Rate FiO2 10/04/17 08:38 62 110/74 10/04/17 06:22 97.2 18 98 I&O Intake and Output 10/04/17 07:00 Intake Total 960 ml Balance 960 ml Intake Oral 960 ml Current Medications: Meds: Current Medications Clonidine HCl (Catapres Tts-2) 1 patch 1X ONCE TD Last administered on at 19:10; Start 09/24/17 at 18:30; Stop 09/24/17 at 18:31; Status DC Clonidine HCl (Catapres Tts-2) 1 patch 1X ONCE TD ; Start 09/24/17 at 20:30; Stop 09/24/17 at 20:31; Status DC Acetaminophen (Tylenol) 650 mg PRN Q6HRS PRN PO MILDPAIN / TEMP Last administered on 10/04/17at 04:49; Start 09/24/17 at 21:30; Stop 10/04/17 at 14:38; Status DC Multi-Ingredient Ointment (Analgesic [place]) 1 jovon PRN QID PRN TP MUSCLE PAIN; Start 09/24/17 at 21:30; Stop 10/04/17 at 14:38; Status DC Al Hydroxide/Mg Hydroxide (Mylanta Plus Xs) 15 ml PRN AFTMEALHC PRN PO DYSPEPSIA; Start 09/24/17 at 21:30; Stop 10/04/17 at 14:38; Status DC Magnesium Hydroxide (Milk Of Magnesia) 2,400 mg PRN QHS PRN PO CONSTIPATION 1ST CHOICE; Start 09/24/17 at 21:30; Stop 10/04/17 at 14:38; Status DC Gabapentin (Neurontin) 400 mg TID PO ; Start 09/25/17 at 09:00; Stop 09/25/17 at 09:00; Status DC Risperidone (RisperDAL) 1 mg BID PO ; Start 09/25/17 at 09:00; Stop 09/25/17 at 09:00; Status DC Trazodone HCl (Desyrel) 200 mg QHS PO ; Start 09/25/17 at 21:00; Stop 09/25/17 at 21:00; Status DC Non-Formulary Medication (Propranolol Hcl ) 60 mg TID PO ; Start 09/25/17 at 09: 00; Stop 09/25/17 at 09:00; Status DC Gabapentin (Neurontin) 400 mg TID PO Last administered on 10/04/17at 13:32; Start 09/24/17 at 23:00; Stop 10/04/17 at 14:38; Status DC Risperidone (RisperDAL) 1 mg BID PO Last administered on 10/04/17at 06:32; Start 09/24/17 at 23:00; Stop 10/04/17 at 14:38; Status DC Trazodone HCl (Desyrel) 200 mg QHS PO Last administered on 10/03/17at 19:30; Start 09/24/17 at 23:00; Stop 10/04/17 at 14:38; Status DC Propranolol HCl (Inderal) 60 mg TID PO ; Start 09/25/17 at 09:00; Stop 09/25/17 at 09:00; Status DC Propranolol HCl (Inderal) 60 mg TID PO Last administered on 09/25/17at 21:04; Start 09/24/17 at 23:45; Stop 09/26/17 at 15:04; Status DC Divalproex Sodium (Depakote Er) 500 mg QHS PO Last administered on 09/26/17at 20 :06; Start 09/25/17 at 21:00; Stop 09/27/17 at 18:26; Status DC Propranolol HCl (Inderal) 40 mg TID PO Last administered on 10/02/17 09:03; Start 09/26/17 at 21:00; Stop 10/02/17 at 15:18; Status DC Divalproex Sodium (Depakote Sprinkles) 500 mg HS PO Last administered on at 20:09; Start 09/27/17 at 21:00; Stop 09/28/17 at 18:31; Status DC Divalproex Sodium (Depakote Sprinkles) 500 mg BID PO Last administered on 06:33; Start 09/28/17 at 21:00; Stop 10/04/17 at 14:38; Status DC Mirtazapine (Remeron) 7.5 mg QHS PO Last administered on 10/03/17 19:30; Start 09/28/17 at 21:00; Stop 10/04/17 at 14:38; Status DC Melatonin 3 mg QHS PO Last administered on 10/03/17 19:30; Start 09/28/17 at 21: 00; Stop 10/04/17 at 14:38; Status DC Propranolol HCl (Inderal) 40 mg BID PO Last administered on 10/03/17 21:14; Start 10/02/17 at 21:00; Stop 10/04/17 at 14:38; Status DC Active Scripts Active Reported Mirtazapine 15 Mg Tablet 7.5 Mg PO QHS Analgesic [place] (Methyl Salicylate/Menthol) 28 Gm Oint...g. 1 Jovon TP PRN QID PRN Melatonin 3 Mg Tablet 3 Mg PO QHS Milk Of Magnesia (Magnesium Hydroxide) 2,400 Mg/10 Ml Oral.susp 2,400 Mg PO PRN QHS PRN Liquid Antacid Suspension (Mag Hydrox/Al Hydrox/Simeth) 355 Ml Oral.susp 15 Ml PO PRN AFTMEALHC PRN Depakote Sprinkle (Divalproex Sodium) 125 Mg Cap.sprink 500 Mg PO BID Tylenol (Acetaminophen) 325 Mg Tablet 650 Mg PO PRN Q6HRS PRN Trazodone Hcl 100 Mg Tablet 200 Mg PO QHS Risperidone 1 Mg Tablet 1 Mg PO BID Propranolol Hcl 60 Mg Tablet 40 Mg PO TID Neurontin (Gabapentin) 400 Mg Capsule 400 Mg PO TID I have reviewed the current psychotropics carefully including drug interactions. Risk benefit ratio favors no change other than as noted in my dictated progress note. Diagnosis: Problems: (1) Schizoaffective disorder, chronic condition with acute exacerbation (2) Schizoaffective disorder, bipolar type (3) Bipolar 1 disorder, manic, moderate (4) Bipolar affective, mixed, severe (5) Anxiety disorder ZORAIDA MCKEON MD October 04, 2017 18:44
--- NOTE | 2017-10-05 05:43 | PN ---
DATE: 10/01/2017 This is a late entry for 10/01/2017 and covers the elements not covered in my initial note of 10/01/2017. SUBJECTIVE: I met with the patient in the evening. The patient slept 6-1/2 hours, complains of pain, received Neurontin. REVIEW OF SYSTEMS: No CV, , pulmonary, eye system symptoms on review. Reliability poor. MENTAL STATUS EXAM: Oriented to himself and situation. Speech is typical for him. Abstraction fair, computation impaired, language function intact, attention span short. Mood and affect remains somewhat labile. LABORATORY DATA: Reviewed. IMPRESSION: Unchanged from initial note. PLAN: Continue current psychotropics. MAN Marcie MCKEON MD DR: QUYEN/chapis JOB#: [id number] / [id number]
--- NOTE | 2017-10-05 05:46 | PN ---
DATE: 10/02/2017 This is a late entry for 10/02/2017 and covers the elements not covered in my initial note of 10/02/2017. SUBJECTIVE: I met with the patient in the evening. Overall, the patient has been interactive and social during the day, very delusional, odd in his presentation. Compliant with medications, cooperative. REVIEW OF SYSTEMS: No CV, , pulmonary, eye system symptoms on review. As I met with him individually, he talked about accommodation at [facility] and how he was displeased with this. MENTAL STATUS EXAM: Oriented to himself, situation. Speech typical as above. Abstraction fair, computation impaired, language function intact, attention span short. Mood and affect somewhat labile. LABORATORY DATA: Reviewed. IMPRESSION: Unchanged from initial note. PLAN: Continue psychotropics from my initial note. MAN Marcie MCKEON MD DR: QUYEN/chapis JOB#: [id number] / [id number]
--- NOTE | 2017-10-05 12:29 | DS ---
DATE OF DISCHARGE: 10/04/2017 PSYCHIATRIC DISCHARGE SUMMARY This is a late entry 10/04/2017, covers elements not covered in my initial note 10/04/2017. REASON FOR ADMISSION: Please refer to the admission history for details. Briefly, the patient is a 66-year-old male referred from the [facility] in [place], [place] on account of noncompliance with his psychotropics, worsening delusions. He was talking about there being "9 gods of deepti and that he will be the 10th." He had increased confusion and agitation. He lives at [facility]. His psychotic symptoms made it to where he was potentially dangerous living there by himself, had failed outpatient psychiatric interventions, referred for inpatient psychiatric stabilization. SIGNIFICANT FINDINGS AND CLINICAL COURSE: Following admission, the patient was seen daily individually by myself from a psychiatric standpoint, medical followup per Dr. Rivas/Dr. Edwadrs/Dr. Troy. He was quite psychotic, had typical facial expression and speech pattern consistent with his psychosis. He was grandiose. He was maintained on Risperdal 4 mg b.i.d. and Depakote Sprinkles added increasing to 500 mg b.i.d. with a Valproic acid level therapeutic at that dosage at 52. He was also on Remeron 7.5 mg at bedtime, melatonin 3 mg at bedtime prior to discharge. Gradually mood appeared to stabilize. He was still delusional, but much less so than before. REVIEW OF SYSTEMS: Prior to discharge on 10/04/2017; no CV, , pulmonary, eye, ENT system symptoms on review. MENTAL STATUS EXAM: Oriented to himself and situation. Speech coherent with typical rhythm and shanice abstraction fair, computation impaired, language function intact, attention span short. Mood and affect, lability was improved. No suicidal or homicidal ideation prior to discharge. FINAL DIAGNOSES: Schizoaffective disorder, bipolar type, mixed with psychotic features, in partial remission; schizophrenia, chronic, undifferentiated with acute exacerbation, in partial remission; anxiety disorder, unspecified; impulse control disorder, unspecified. Rest unchanged from admission. DISCHARGE MEDICATIONS: Please refer to the . DISCHARGE INSTRUCTIONS: Outpatient psychiatric and medical followup at the [facility] in [place], [place]. Time for discharge day management greater than 30 minutes. MAN Marcie MCKEON MD DR: Emilee JOB#: [id number] / [id number]
--- NOTE | 2017-10-05 22:32 | PN ---
DATE: 10/03/2017 This is a late entry for 10/03/2017 and covers the elements not covered in my initial note of 10/03/2017. SUBJECTIVE: I met with the patient in the evening. He slept 7-1/2 hours. Still talking rather bizarre about spaceships and ____ as I met with him with typical rhythm in his speech. REVIEW OF SYSTEMS: No CV, , pulmonary, eye, ENT system symptoms on review. Reliability varies. MENTAL STATUS EXAM: Oriented to himself, situation. Speech is coherent, abstraction fair, computation impaired, language function intact. Mood and affect somewhat labile. LABORATORY DATA: Reviewed. IMPRESSION: Unchanged from initial note. PLAN: Continue psychotropics. ZORAIDA MCKEON MD DR: QUYEN/chapis JOB#: [id number] / [id number]
== END 2017-10-04 14:37 | disposition home or self-care (01) | DRG 885 ==
LOC: EEVIPCON 17:47 → ER 17:47 → GEROPSY 21:00
PROVIDERS: ADMIT Psychiatry & Neurology Psychiatry; ATTEND Psychiatry & Neurology Psychiatry
DX: F25.0 Schizoaffective disorder, bipolar type (principal); G93.89 Other specified disorders of brain; F03.90 Unspecified dementia, unspecified severity, without behavioral disturbance, psychotic disturbance, mood disturbance, and anxiety; F12.10 Cannabis abuse, uncomplicated; F63.9 Impulse disorder, unspecified; M25.78 Osteophyte, vertebrae; F41.9 Anxiety disorder, unspecified; G89.29 Other chronic pain; G47.00 Insomnia, unspecified; I10 Essential (primary) hypertension; M47.812 Spondylosis without myelopathy or radiculopathy, cervical region; M12.88 Other specific arthropathies, not elsewhere classified, other specified site; Z79.899 Other long term (current) drug therapy; Z86.73 Personal history of transient ischemic attack (TIA), and cerebral infarction without residual deficits; Z91.19 Patient's noncompliance with other medical treatment and regimen; Z88.2 Allergy status to sulfonamides; Z72.0 Tobacco use
CPT/HCPCS: 36415; 70450; 71046; 72125; 80048; 80053; 80061; 80164; 80307; 81001; 82306; 82553; 82607; 83036; 83540; 83550; 83735; 83880; 84436; 84443; 84480; 84484; 85025; 85610; 85651; 85730; 86593; 93005; 99285-25; G0479